=== PATIENT | male | born 1950 | race Hispanic/Latino ===

== ENCOUNTER → 2018-01-07 | Outpatient (CLI) | payer OTHER ==
[~2018-01-07] MED LIST: AEC81 PO; ATOR40TA69 PO; CLOP75TA14 NG; CYAN500 PO; FURO20TA4 PO; GABA-531 PO; GLIP2.5T2 PO; HYDR-4030 PO; LISI2.5T2 PO; MAGN400T6 PO; MAGN500C15 PO; METF-446 PO; METO25TA6 PO; PANT20TA PO
== END | disposition home or self-care (01) ==
LOC: SHCH 15:57
PROVIDERS: ATTEND Internal Medicine Cardiovascular Disease
DX: I47.2 Ventricular tachycardia (principal); I25.10 Atherosclerotic heart disease of native coronary artery without angina pectoris; Z95.0 Presence of cardiac pacemaker
CPT/HCPCS: 93306

== ENCOUNTER → 2018-01-09 | Outpatient (CLI) | payer OTHER | END | disposition home or self-care (01) | LOC: SHCH 14:35 | PROVIDERS: ATTEND Internal Medicine Cardiovascular Disease | DX: I73.9 Peripheral vascular disease, unspecified (principal); E11.42 Type 2 diabetes mellitus with diabetic polyneuropathy; I25.10 Atherosclerotic heart disease of native coronary artery without angina pectoris | CPT/HCPCS: 93925 ==

== ENCOUNTER 2018-01-20 08:54 | Observation (INO) | payer OTHER ==
[~2018-01-20] VITALS: Ht 180.3 cm; Wt 87.4 kg
[~2018-01-20 08:54] MED LIST changes: -CYAN500 PO; -GABA-531 PO; -LISI2.5T2 PO; -MAGN400T6 PO
[2018-01-20] MEDS ORDERED: SODIUM CHLORIDE 0.9% 500ML 500 ML IV ONE (10:29)
[2018-01-20 10:32] LABS: POTASSIUM 4.4 mmol/L (3.5-5.1)
[2018-01-20 10:35] LABS: BASOPHILS % (AUTO) 1.2 % (0.0-5.0); EOSINOPHILS % (AUTO) 2.9 % (0.0-8.0); HEMATOCRIT 46.1 % (42-54); LYMPHOCYTES % (AUTO) 18.9 % (21.0-51.0); MEAN CORPUSCULAR HEMOGLOBIN 31.9 pg (27.0-33.0); MEAN CORPUSCULAR HGB CONC 34.4 g/dL (32.0-36.0); MEAN CORPUSCULAR VOLUME 92.5 fL (79-99); MONOCYTES % (AUTO) 6.5 % (3.0-13.0); NEUTROPHILS % (AUTO) 70.5 % (40.0-77.0); NUCLEATED RED BLOOD CELLS 0.1 % (0.0-0.19); PLATELET COUNT (AUTO) 190 K/uL (130-400); RED BLOOD CELL COUNT(AUTO) 4.98 MIL/uL (4.50-6.20); RED CELL DISTRIBUTION WIDTH 13.5 % (11.0-15.5); WHITE BLOOD COUNT (AUTO) 9.3 K/uL (4.8-10.8)
[2018-01-20 10:38] LABS: BILIRUBIN,TOTAL 1.2 mg/dL (0.2-1.0); TOTAL PROTEIN, SERUM 7.6 g/dL (6.0-8.3)
[2018-01-20] MEDS ORDERED: ACETAMINOPHEN 325 MG TAB ONE (11:58)
[2018-01-20 12:17] LABS: INR 0.93 (0.85-1.15); PARTIAL THROMBOPLASTIN TIME 31.3 SEC (26.3-35.5); PROTHROMBIN TIME 9.8 SEC (9.6-11.6)
[2018-01-20] MEDS ORDERED: MECLIZINE HCL 25 MG TABLET PO PRN (15:00)
[2018-01-20 15:31] LABS: APPEARANCE,URINE Cloudy (CLEAR); BILIRUBIN,URINE Negative (NEGATIVE); COLOR,URINE Yellow (YELLOW); GLUCOSE, URINE (UA) Negative (NEGATIVE); KETONES,URINE Trace mg/dL (NEGATIVE); LEUKOCYTE ESTERASE ,URINE Negative (NEGATIVE); NITRATE,URINE Negative (NEGATIVE); OCCULT BLOOD,URINE Negative (NEGATIVE); PH,URINE >=9.0 (5.0-8.0); PROTEIN,URINE POS 2+ (NEGATIVE)
[2018-01-20 16:21] LABS: BACTERIA,URINE Few /HPF (None Seen); RBC,URINE 0-1 /HPF (0-1); WBC,URINE 0-1 /HPF (0-1)
[2018-01-20 16:23] LABS: AMORPHOUS SEDIMENT,UR Few /LPF (None Seen); SQUAMOUS EPITHELIAL CELL,UR Rare /HPF (0-2)
[2018-01-20 16:24] LABS: MUCUS,URINE Rare LPF (None Seen)
[2018-01-20] MEDS: INSULIN HUMULIN R 100 UNIT/ML 3ML SQ SCH ×2 (16:30→21:00)
[2018-01-20 17:52] VITALS: BP 141/90
[2018-01-20] MEDS ORDERED: MAGNESIUM 2GM PREMIX 50ML 50 ML IV SCH (18:00)
[2018-01-20] MEDS: SODIUM CHLORIDE 0.9% 1000ML 1,000 ML IV SCH (18:08)
[2018-01-20 19:40] VITALS: BP 139/76
[2018-01-20] MEDS: MAGNESIUM OXIDE 400 MG TABLET PO SCH (20:38)
[2018-01-20] MEDS: ATORVASTATIN CALCIUM 40 MG TABLET PO SCH (20:38)
[2018-01-20] MEDS: METOPROLOL TARTRATE 25 MG TAB PO SCH (20:38)
[2018-01-20] MEDS: HYDROXYZINE PAMOATE 25 MG PO SCH (21:00)
[2018-01-21] VITALS (7 sets, daily range): BP systolic 122–153; BP diastolic 55–79
[2018-01-21] MEDS: INSULIN HUMULIN R 100 UNIT/ML 3ML SQ SCH ×4 (06:30→22:08)
[2018-01-21 08:43] LABS: TROPONIN I 0.27 ng/mL (0.00-0.06)
[2018-01-21] MEDS: MAGNESIUM OXIDE 400 MG TABLET PO SCH ×3 (08:59→20:39)
[2018-01-21] MEDS: ASPIRIN 81 MG EC TAB PO SCH (08:59)
[2018-01-21] MEDS: CLOPIDOGREL BISULFATE 75 MG TAB NG SCH (08:59)
[2018-01-21] MEDS: FUROSEMIDE 20 MG TABLET PO SCH (08:59)
[2018-01-21] MEDS: PANTOPRAZOLE SODIUM 40 MG TABLET.DR PO SCH (08:59)
[2018-01-21] MEDS ORDERED: PANTOPRAZOLE SODIUM 40 MG TABLET.DR PO SCH (09:00)
[2018-01-21] MEDS: HYDROXYZINE PAMOATE 25 MG PO SCH ×2 (09:01→21:00)
[2018-01-21] MEDS: ENOXAPARIN SODIUM 30 MG/0.3 ML SQ SCH (09:02)
[2018-01-21] MEDS ORDERED: ACETAMINOPHEN 325 MG TAB PO PRN (12:00)
[2018-01-21] MEDS: SODIUM CHLORIDE 0.9% 1000ML 1,000 ML IV SCH ×2 (15:17→17:03)
[2018-01-21] MEDS: ATORVASTATIN CALCIUM 40 MG TABLET PO SCH (20:39)
[2018-01-21] MEDS: METOPROLOL TARTRATE 25 MG TAB PO SCH (20:40)
[2018-01-22 03:53] VITALS: BP 132/73
[2018-01-22] MEDS: INSULIN HUMULIN R 100 UNIT/ML 3ML SQ SCH ×3 (06:21→16:30)
[2018-01-22 07:00] VITALS: BP 116/65
[2018-01-22] MEDS: HYDROXYZINE PAMOATE 25 MG PO SCH (09:00)
[2018-01-22] MEDS: MAGNESIUM OXIDE 400 MG TABLET PO SCH ×2 (09:23→14:00)
[2018-01-22] MEDS: ASPIRIN 81 MG EC TAB PO SCH (09:23)
[2018-01-22] MEDS: CLOPIDOGREL BISULFATE 75 MG TAB NG SCH (09:23)
[2018-01-22] MEDS: FUROSEMIDE 20 MG TABLET PO SCH (09:23)
[2018-01-22] MEDS: PANTOPRAZOLE SODIUM 40 MG TABLET.DR PO SCH (09:23)
[2018-01-22] MEDS: ENOXAPARIN SODIUM 30 MG/0.3 ML SQ SCH (09:24)
[2018-01-22] MEDS: SODIUM CHLORIDE 0.9% 1000ML 1,000 ML IV SCH (09:25)
[2018-01-22] MEDS ORDERED: MECLIZINE HCL 25 MG TABLET PO PRN (10:45)
[2018-01-22 11:29] VITALS: BP 126/65
[2018-01-22] MEDS ORDERED: IOHEXOL-350 50ML VIAL IV ONE (14:10)
[2018-01-22 16:08] VITALS: BP 135/89
[2018-01-22] MEDS ORDERED: MECL-111 PO (16:52)
== END 2018-01-22 17:30 | disposition home or self-care (01) ==
LOC: EDH 08:54 → EDHIP 14:22 → INTOOBSV 14:22 → 2DH 17:04
PROVIDERS: ADMIT Hospitalist; ATTEND Hospitalist
DX: R55 Syncope and collapse (principal); E78.5 Hyperlipidemia, unspecified; I10 Essential (primary) hypertension; E11.9 Type 2 diabetes mellitus without complications; E83.42 Hypomagnesemia; H91.90 Unspecified hearing loss, unspecified ear; H93.19 Tinnitus, unspecified ear; I25.10 Atherosclerotic heart disease of native coronary artery without angina pectoris; I25.5 Ischemic cardiomyopathy; I49.01 Ventricular fibrillation; Z91.19 Patient's noncompliance with other medical treatment and regimen; Z95.1 Presence of aortocoronary bypass graft; Z95.810 Presence of automatic (implantable) cardiac defibrillator; Z82.0 Family history of epilepsy and other diseases of the nervous system; Z82.3 Family history of stroke; Z82.49 Family history of ischemic heart disease and other diseases of the circulatory system; Z83.3 Family history of diabetes mellitus; Z88.5 Allergy status to narcotic agent
CPT/HCPCS: 36415 ×2; 70450; 70470; 71045; 80053; 81001; 82550; 82948 ×9; 83735; 83874; 84484 ×2; 85025; 85610; 85730; 93005; 93880; 96361 ×3; 96365; 96372 ×2; 97116; 97161; 99285; G0378 ×51; G8978; G8979; G8980; G8981; G8982; G8983; J1650 ×2; J1815; J3475; J7030 ×2; J7040; Q9967

== ENCOUNTER 2018-03-09 23:37 | Observation (INO) | payer OTHER ==
[~2018-03-09] VITALS: Ht 180.3 cm; Wt 86.5 kg
[~2018-03-09 23:37] MED LIST changes: -HYDR-4030 PO; +MECL-111 PO
[2018-03-09] MEDS ORDERED: ASPIRIN 81MG TAB.CHEW ONE (23:47)
[2018-03-09] MEDS ORDERED: NITROGLYCERIN 0.4 MG SL TAB SL ONE (23:47)
[2018-03-09] MEDS ORDERED: ONDANSETRON HCL 4 MG/2 ML VIAL ONE (23:59)
[2018-03-10] MEDS ORDERED: ONDANSETRON ODT 4 MG TAB ONE (00:01)
[2018-03-10 00:14] LABS: BASOPHILS % (AUTO) 3.1 % (0.0-5.0); EOSINOPHILS % (AUTO) 4.7 % (0.0-8.0); HEMATOCRIT 42.8 % (42-54); LYMPHOCYTES % (AUTO) 35.9 % (21.0-51.0); MEAN CORPUSCULAR HEMOGLOBIN 31.7 pg (27.0-33.0); MEAN CORPUSCULAR HGB CONC 34.3 g/dL (32.0-36.0); MEAN CORPUSCULAR VOLUME 92.4 fL (79-99); MONOCYTES % (AUTO) 6.3 % (3.0-13.0); NUCLEATED RED BLOOD CELLS 0.1 % (0.0-0.19); PLATELET COUNT (AUTO) 154 K/uL (130-400); RED BLOOD CELL COUNT(AUTO) 4.63 MIL/uL (4.50-6.20); RED CELL DISTRIBUTION WIDTH 13.3 % (11.0-15.5)
[2018-03-10 00:19] LABS: POTASSIUM 3.8 mmol/L (3.5-5.1)
[2018-03-10 00:21] LABS: INR 0.94 (0.85-1.15); PARTIAL THROMBOPLASTIN TIME 29.3 SEC (26.3-35.5); PROTHROMBIN TIME 9.9 SEC (9.6-11.6)
[2018-03-10 00:30] LABS: ALBUMIN 3.8 g/dL (3.5-5.0); BILIRUBIN,TOTAL 0.6 mg/dL (0.2-1.0); TOTAL PROTEIN, SERUM 7.2 g/dL (6.0-8.3)
[2018-03-10] MEDS ORDERED: ACETAMINOPHEN 325 MG TAB PO PRN (02:45)
[2018-03-10] MEDS: NITROGLYCERIN 1GM/1 INCH PACKET TD SCH ×2 (02:45→07:28)
[2018-03-10] MEDS ORDERED: MORPHINE SULFATE 2 MG/ML 1ML SYG IV PRN (02:45)
[2018-03-10] MEDS ORDERED: ONDANSETRON HCL MDV 20ML 2 MG/ML VIAL IV PRN (02:45)
[2018-03-10] MEDS ORDERED: MECLIZINE HCL 25 MG TABLET PO PRN (03:00)
[2018-03-10] MEDS ORDERED: GLUCAGON 1MG KIT 1 MG ML IM PRN (03:15)
[2018-03-10] MEDS ORDERED: DEXTROSE 50%-WATER 50 ML DISP.SYRIN IV PRN (03:15)
[2018-03-10 03:51] LABS: ALBUMIN 3.7 g/dL (3.5-5.0); BILIRUBIN,TOTAL 0.7 mg/dL (0.2-1.0); CREATININE 1.1 mg/dL (0.5-1.5); POTASSIUM 4.6 mmol/L (3.5-5.1); TOTAL PROTEIN, SERUM 6.9 g/dL (6.0-8.3)
[2018-03-10 04:00] VITALS: BP 132/69
[2018-03-10] MEDS: INSULIN HUMULIN R 100 UNIT/ML 3ML SQ SCH ×2 (06:09→11:21)
[2018-03-10 07:37] VITALS: BP 128/70
[2018-03-10] MEDS ORDERED: MAGNESIUM OXIDE 400 MG TABLET PO ONE (07:40)
[2018-03-10] MEDS ORDERED: ATORVASTATIN CALCIUM 20 MG TABLET PO SCH (09:00)
[2018-03-10] MEDS ORDERED: MAGNESIUM OXIDE 400 MG TABLET PO SCH (09:00)
[2018-03-10] MEDS ORDERED: FAMOTIDINE/PF 20 MG/2 ML VIAL IV SCH (09:00)
[2018-03-10] MEDS ORDERED: FUROSEMIDE 20 MG TABLET PO SCH (09:00)
[2018-03-10] MEDS ORDERED: ASPIRIN 81 MG EC TAB PO SCH (09:00)
[2018-03-10] MEDS ORDERED: METOPROLOL TARTRATE 25 MG TAB PO SCH (09:00)
[2018-03-10 11:11] VITALS: BP 134/69
[2018-03-10] MEDS ORDERED: METOPROLOL SUCC PO (12:06)
[2018-03-10] MEDS ORDERED: SERT50TA12 PO (12:06)
[2018-03-10] MEDS ORDERED: HYDR-3421 PO (12:06)
[2018-03-11] MEDS ORDERED: ISOSORBIDE MONO 30MG TAB SR PO SCH (09:00)
== END 2018-03-10 13:36 | disposition home or self-care (01) ==
LOC: EDH 23:37 → EDHIP 03-10 02:00 → INTOOBSV 03-10 02:00 → OBSVTOIN 03-10 02:00 → 2DH 03-10 02:43
PROVIDERS: ADMIT Hospitalist; ATTEND Hospitalist
DX: I24.9 Acute ischemic heart disease, unspecified (principal); E11.9 Type 2 diabetes mellitus without complications; E78.2 Mixed hyperlipidemia; E83.42 Hypomagnesemia; I11.0 Hypertensive heart disease with heart failure; I50.42 Chronic combined systolic (congestive) and diastolic (congestive) heart failure; I25.10 Atherosclerotic heart disease of native coronary artery without angina pectoris; I25.2 Old myocardial infarction; I25.5 Ischemic cardiomyopathy; I49.01 Ventricular fibrillation; I49.3 Ventricular premature depolarization; K21.9 Gastro-esophageal reflux disease without esophagitis; Z86.74 Personal history of sudden cardiac arrest; Z87.891 Personal history of nicotine dependence; Z91.14 Patient's other noncompliance with medication regimen; Z95.1 Presence of aortocoronary bypass graft; Z95.810 Presence of automatic (implantable) cardiac defibrillator; Z82.0 Family history of epilepsy and other diseases of the nervous system; Z82.3 Family history of stroke; Z82.49 Family history of ischemic heart disease and other diseases of the circulatory system; Z83.3 Family history of diabetes mellitus; Z88.5 Allergy status to narcotic agent
CPT/HCPCS: 36415 ×2; 71045; 80053 ×2; 82550; 82948 ×2; 83735; 83874; 84484 ×2; 85025; 85610; 85730; 93005 ×2; 94760; 96374; 99291; A4606; G0378 ×12; J2405; J3490

== ENCOUNTER → 2018-12-15 | Outpatient (CLI) | payer OTHER ==
[~2018-12-15] VITALS: Ht 180.3 cm; Wt 82.6 kg
[~2018-12-15] MED LIST changes: +HYDR-3421 PO; -METO25TA6 PO; +METOPROLOL SUCC PO; +REGADENOSON 0.4 MG/5 ML PF SYG IVP SCH; +SERT50TA12 PO
== END | disposition home or self-care (01) ==
LOC: SHCH 07:59
PROVIDERS: ATTEND Internal Medicine Cardiovascular Disease
DX: I51.7 Cardiomegaly (principal); R06.00 Dyspnea, unspecified; R53.83 Other fatigue
CPT/HCPCS: 78452; 93017; 96374; A9500 ×2; J2785

== ENCOUNTER → 2020-02-18 | Outpatient (CLI) | payer OTHER ==
[~2020-02-18] MED LIST changes: -MECL-111 PO; +MECL-160 PO; -REGADENOSON 0.4 MG/5 ML PF SYG IVP SCH
== END | disposition home or self-care (01) ==
LOC: SHCH 13:02
PROVIDERS: ATTEND Internal Medicine Cardiovascular Disease
DX: R01.1 Cardiac murmur, unspecified (principal); R09.89 Other specified symptoms and signs involving the circulatory and respiratory systems
CPT/HCPCS: 93306; 93975

== ENCOUNTER → 2020-09-01 | Outpatient (CLI) | payer OTHER ==
[~2020-09-01] MED LIST changes: +SERT-439 PO; -SERT50TA12 PO
== END | disposition home or self-care (01) ==
LOC: SHCH 10:57
PROVIDERS: ATTEND Internal Medicine Cardiovascular Disease
DX: I70.293 Other atherosclerosis of native arteries of extremities, bilateral legs (principal)
CPT/HCPCS: 93925

== ENCOUNTER 2021-06-06 00:38 | Emergency (ER) | payer OTHER ==
[~2021-06-06] VITALS: Ht 180.3 cm; Wt 88.9 kg
[~2021-06-06 00:38] MED LIST changes: -ATOR40TA69 PO; +ATOR40TA71 PO; -CLOP75TA14 NG; +CLOP75TA14 PO; -FURO20TA4 PO; +FURO40TA5 PO; +GLIP-162 PO; -GLIP2.5T2 PO; -HYDR-3421 PO; +ISOS30TA92 PO; +LORA10TA7 PO; -MECL-160 PO; +METO-408 PO; -METOPROLOL SUCC PO; -PANT20TA PO; -SERT-439 PO; +SERT-440 PO; +SPIR25TA6 PO
[2021-06-06 01:30] LABS: EOSINOPHILS % (AUTO) 3.5 % (0.0-8.0); HEMATOCRIT 39.6 % (42-54); LYMPHOCYTES % (AUTO) 18.8 % (21.0-51.0); MEAN CORPUSCULAR HEMOGLOBIN 29.3 pg (27.0-33.0); MEAN CORPUSCULAR HGB CONC 33.3 g/dL (32.0-36.0); MONOCYTES % (AUTO) 7.3 % (3.0-13.0); NEUTROPHILS % (AUTO) 69.1 % (40.0-77.0); PLATELET COUNT (AUTO) 183 K/uL (130-400); RED CELL DISTRIBUTION WIDTH 13.6 % (11.0-15.5); WHITE BLOOD COUNT (AUTO) 11.8 K/uL (4.8-10.8)
[2021-06-06 01:35] LABS: CREATININE 1.2 mg/dL (0.5-1.5); POTASSIUM 4.4 mmol/L (3.5-5.1)
[2021-06-06 01:36] LABS: INR 0.94 (0.85-1.15); PROTHROMBIN TIME 10.3 SEC (9.6-11.6)
[2021-06-06 01:37] LABS: PARTIAL THROMBOPLASTIN TIME 27.8 SEC (26.3-35.5)
[2021-06-06 01:39] LABS: ALBUMIN 4.1 g/dL (3.5-5.0); BILIRUBIN,TOTAL 0.5 mg/dL (0.2-1.0); TOTAL PROTEIN, SERUM 6.8 g/dL (6.0-8.3)
[2021-06-06 01:50] LABS: B-TYPE NATRIURETIC PEPTIDE 556 pg/mL (0-100)
[2021-06-06 02:42] VITALS: BP 125/62
== END 2021-06-06 02:58 | disposition home or self-care (01) ==
LOC: EDH 00:38
DX: I11.0 Hypertensive heart disease with heart failure (principal); I50.9 Heart failure, unspecified; R07.89 Other chest pain; E11.9 Type 2 diabetes mellitus without complications; E78.00 Pure hypercholesterolemia, unspecified; Z79.82 Long term (current) use of aspirin; Z79.84 Long term (current) use of oral hypoglycemic drugs; Z79.899 Other long term (current) drug therapy; Z95.1 Presence of aortocoronary bypass graft; Z95.810 Presence of automatic (implantable) cardiac defibrillator
CPT/HCPCS: 36415; 71045; 80053; 82550; 83735; 83880; 84484; 85025; 85610; 85730; 93005

== ENCOUNTER 2022-02-08 22:07 | Emergency (ER) | payer OTHER ==
[~2022-02-08] VITALS: Ht 177.8 cm; Wt 83.5 kg
[~2022-02-08 22:07] MED LIST changes: -MAGN500C15 PO; +MAGN500C4 PO
[2022-02-08 22:25] LABS: BASOPHILS % (AUTO) 1.1 % (0.0-5.0); EOSINOPHILS % (AUTO) 3.2 % (0.0-8.0); HEMATOCRIT 40.4 % (42-54); LYMPHOCYTES % (AUTO) 19.2 % (21.0-51.0); MEAN CORPUSCULAR HEMOGLOBIN 31.2 pg (27.0-33.0); MEAN CORPUSCULAR HGB CONC 34.7 g/dL (32.0-36.0); MONOCYTES % (AUTO) 7.8 % (3.0-13.0); NEUTROPHILS % (AUTO) 68.3 % (40.0-77.0); PLATELET COUNT (AUTO) 182 K/uL (130-400); RED BLOOD CELL COUNT(AUTO) 4.49 MIL/uL (4.50-6.20); RED CELL DISTRIBUTION WIDTH 13.4 % (11.0-15.5); WHITE BLOOD COUNT (AUTO) 10.7 K/uL (4.8-10.8)
[2022-02-08 22:38] LABS: INR 0.96 (0.85-1.15); PROTHROMBIN TIME 10.5 SEC (9.6-11.6)
[2022-02-08 22:40] LABS: PARTIAL THROMBOPLASTIN TIME 29.1 SEC (26.3-35.5)
[2022-02-08 22:45] LABS: ALBUMIN 4.1 g/dL (3.5-5.0); CREATININE 1.4 mg/dL (0.5-1.5); POTASSIUM 4.2 mmol/L (3.5-5.1)
[2022-02-08 23:20] VITALS: BP 127/65
[2022-02-08] MEDS ORDERED: 0.9% NACL 500ML IV.SOLN 500 ML IV ONE (23:30)
[2022-02-08] MEDS ORDERED: ASPIRIN 81MG CHEW TAB PO ONE (23:30)
== END 2022-02-09 00:31 | disposition home or self-care (01) ==
LOC: EDH 22:07
DX: R55 Syncope and collapse (principal); R42 Dizziness and giddiness; E11.9 Type 2 diabetes mellitus without complications; E78.00 Pure hypercholesterolemia, unspecified; I10 Essential (primary) hypertension; I25.2 Old myocardial infarction; Z79.82 Long term (current) use of aspirin; Z79.84 Long term (current) use of oral hypoglycemic drugs; Z95.1 Presence of aortocoronary bypass graft
CPT/HCPCS: 99285; 70450; 71045; 84484; 80053; 85025; 85610; 85730; 36415; 93005; J7040

== ENCOUNTER → 2022-06-15 | Outpatient (CLI) | payer OTHER ==
[~2022-06-15] MED LIST changes: +CLOP-31 PO; -CLOP75TA14 PO
== END | disposition home or self-care (01) ==
LOC: RAH 14:55
PROVIDERS: ATTEND Internal Medicine
DX: I70.293 Other atherosclerosis of native arteries of extremities, bilateral legs (principal)
CPT/HCPCS: 93925

== ENCOUNTER 2022-09-22 13:03 | Emergency (ER) | payer OTHER ==
[~2022-09-22] VITALS: Ht 180.3 cm; Wt 86.2 kg
[2022-09-22] MEDS ORDERED: 0.9%NACL 1000ML 1,000 ML IV ONE (14:00)
[2022-09-22 14:32] LABS: HEMATOCRIT 42.7 % (42-54); LYMPHOCYTES % (AUTO) 11.4 % (21.0-51.0); MEAN CORPUSCULAR HEMOGLOBIN 30.6 pg (27.0-33.0); MEAN CORPUSCULAR HGB CONC 33.5 g/dL (32.0-36.0); MEAN CORPUSCULAR VOLUME 91.4 fL (79-99); MONOCYTES % (AUTO) 5.3 % (3.0-13.0); NEUTROPHILS % (AUTO) 79.9 % (40.0-77.0); PLATELET COUNT (AUTO) 165 K/uL (130-400); RED BLOOD CELL COUNT(AUTO) 4.67 MIL/uL (4.50-6.20); RED CELL DISTRIBUTION WIDTH 13.4 % (11.0-15.5); WHITE BLOOD COUNT (AUTO) 9.5 K/uL (4.8-10.8)
[2022-09-22 14:52] LABS: ALBUMIN 3.9 g/dL (3.5-5.0); CREATININE 1.3 mg/dL (0.5-1.5); TOTAL PROTEIN, SERUM 7.2 g/dL (6.0-8.3)
[2022-09-22 15:37] VITALS: BP 129/78
== END 2022-09-22 15:38 | disposition home or self-care (01) ==
LOC: EDH 13:03
DX: I95.1 Orthostatic hypotension (principal); I10 Essential (primary) hypertension; E11.9 Type 2 diabetes mellitus without complications; E78.00 Pure hypercholesterolemia, unspecified; K80.20 Calculus of gallbladder without cholecystitis without obstruction; N20.0 Calculus of kidney; Z79.82 Long term (current) use of aspirin; Z79.84 Long term (current) use of oral hypoglycemic drugs; Z79.899 Other long term (current) drug therapy; Z95.0 Presence of cardiac pacemaker; Z95.1 Presence of aortocoronary bypass graft; Z98.890 Other specified postprocedural states
CPT/HCPCS: 36415; 70450; 74176; 80053; 85025; 93005

== ENCOUNTER 2022-10-29 08:32 | Emergency (ER) | payer OTHER ==
[~2022-10-29] VITALS: Ht 180.3 cm; Wt 84.4 kg
[2022-10-29 09:19] LABS: BASOPHILS % (AUTO) 0.9 % (0.0-5.0); EOSINOPHILS % (AUTO) 2.3 % (0.0-8.0); HEMATOCRIT 41.7 % (42-54); LYMPHOCYTES % (AUTO) 13.3 % (21.0-51.0); MEAN CORPUSCULAR HEMOGLOBIN 30.9 pg (27.0-33.0); MEAN CORPUSCULAR HGB CONC 33.6 g/dL (32.0-36.0); MEAN CORPUSCULAR VOLUME 92.1 fL (79-99); MONOCYTES % (AUTO) 5.6 % (3.0-13.0); NEUTROPHILS % (AUTO) 77.4 % (40.0-77.0); PLATELET COUNT (AUTO) 192 K/uL (130-400); RED BLOOD CELL COUNT(AUTO) 4.53 MIL/uL (4.50-6.20); RED CELL DISTRIBUTION WIDTH 13.7 % (11.0-15.5); WHITE BLOOD COUNT (AUTO) 12.6 K/uL (4.8-10.8)
[2022-10-29 09:33] LABS: CREATININE 1.1 mg/dL (0.5-1.5); POTASSIUM 4.9 mmol/L (3.5-5.1)
[2022-10-29 09:36] LABS: TOTAL PROTEIN, SERUM 7.4 g/dL (6.0-8.3)
[2022-10-29 11:51] VITALS: BP 136/79
== END 2022-10-29 12:11 | disposition home or self-care (01) ==
LOC: EDH 08:32
DX: R79.89 Other specified abnormal findings of blood chemistry (principal); F32.A Depression, unspecified; E11.9 Type 2 diabetes mellitus without complications; E78.00 Pure hypercholesterolemia, unspecified; I10 Essential (primary) hypertension; Z79.82 Long term (current) use of aspirin; Z79.84 Long term (current) use of oral hypoglycemic drugs; Z79.899 Other long term (current) drug therapy; Z95.1 Presence of aortocoronary bypass graft; Z95.810 Presence of automatic (implantable) cardiac defibrillator
CPT/HCPCS: 36415; 71045; 80053; 83880; 84484; 85025; 93005

== ENCOUNTER → 2023-03-01 | Outpatient (CLI) | payer OTHER ==
[~2023-03-01] MED LIST changes: +REGADENOSON 0.4 MG/5 ML PF SYG IVP ONE
== END | disposition home or self-care (01) ==
LOC: SHCH 08:37
PROVIDERS: ATTEND Internal Medicine Cardiovascular Disease
DX: I49.3 Ventricular premature depolarization (principal); I25.10 Atherosclerotic heart disease of native coronary artery without angina pectoris; I51.7 Cardiomegaly; Z95.0 Presence of cardiac pacemaker
CPT/HCPCS: 78452; 96374; 93017; J2785; A9500 ×2

== ENCOUNTER 2023-04-15 05:49 | Day surgery (SDC) | payer OTHER ==
[2023-04-11 09:28] LABS: BASOPHILS # (AUTO) 0.13 K/uL (0.00-0.20); BASOPHILS % (AUTO) 1.1 % (0.0-5.0); EOSINOPHILS # (AUTO) 0.35 K/uL (0.00-0.70); EOSINOPHILS % (AUTO) 2.9 % (0.0-8.0); HEMATOCRIT 40.9 % (42-54); IMMATURE GRANULOCYTE ABSOLUTE 0.05 K/uL (0-1); LYMPHOCYTES # (AUTO) 1.9 K/uL (1.0-4.8); LYMPHOCYTES % (AUTO) 15.6 % (21.0-51.0); MEAN CORPUSCULAR HGB CONC 33.5 g/dL (32.0-36.0); MEAN CORPUSCULAR VOLUME 89.7 fL (79-99); MONOCYTES # (AUTO) 0.7 K/uL (0.1-1.0); MONOCYTES % (AUTO) 5.8 % (3.0-13.0); NEUTROPHILS # (AUTO) 8.9 K/uL (1.8-7.7); NEUTROPHILS % (AUTO) 74.2 % (40.0-77.0); PLATELET COUNT (AUTO) 203 K/uL (130-400); RED BLOOD CELL COUNT(AUTO) 4.56 MIL/uL (4.50-6.20); RED CELL DISTRIBUTION WIDTH 13.5 % (11.0-15.5)
[2023-04-11 09:29] LABS: APPEARANCE,URINE CLEAR (CLEAR); BILIRUBIN,URINE NEGATIVE (NEGATIVE); COLOR,URINE LIGHT-YELLOW (YELLOW); GLUCOSE, URINE (UA) NEGATIVE (NEGATIVE); KETONES,URINE NEGATIVE (NEGATIVE); LEUKOCYTE ESTERASE ,URINE NEGATIVE Leu/uL (NEGATIVE); NITRATE,URINE NEGATIVE (NEGATIVE); OCCULT BLOOD,URINE NEGATIVE (NEGATIVE); PROTEIN,URINE NEGATIVE (NEGATIVE); UROBILINOGEN,URINE 0.2 mg/dL (0.2-1.0)
[2023-04-11 09:32] LABS: ADD UA MICROSCOPIC NO
[2023-04-11 09:33] LABS: CREATININE 1.3 mg/dL (0.5-1.5); POTASSIUM 4.9 mmol/L (3.5-5.1)
[2023-04-11 09:37] LABS: INR < 0.93 (0.85-1.15); PROTHROMBIN TIME 10.6 SEC (9.6-11.6)
[2023-04-11 09:38] LABS: PARTIAL THROMBOPLASTIN TIME 30.1 SEC (26.3-35.5)
[2023-04-11 09:46] VITALS: BP 125/70; PULSE 67; RESP 20
[2023-04-11 10:03] LABS: B-TYPE NATRIURETIC PEPTIDE 1460 pg/mL (0-100)
[2023-04-15] VITALS (12 sets, daily range): BP systolic 109–117; BP diastolic 64–77; PULSE 66–75; RESP 14–16
[~2023-04-15] VITALS: Ht 177.8 cm; Wt 80.9 kg
[~2023-04-15 05:49] MED LIST changes: +CHOL500050 PO; +FAMO40TA7 PO; +FURO20TA4 PO; -FURO40TA5 PO; -ISOS30TA92 PO; -LORA10TA7 PO; +MAGN250C PO; -MAGN500C4 PO; -REGADENOSON 0.4 MG/5 ML PF SYG IVP ONE; -SPIR25TA6 PO; +vitamin b 12 PO
[2023-04-15] MEDS ORDERED: 0.9%NACL 1000ML 1,000 ML IV ONE (06:13)
[2023-04-15] MEDS ORDERED: MEPERIDINE-PF 25 MG/ML SYG ONE ×3 (07:05→08:17)
[2023-04-15] MEDS ORDERED: MIDAZOLAM HCL 1 MG/ML 2ML VIAL ONE ×3 (07:05→08:17)
[2023-04-15] MEDS ORDERED: LIDOCAINE HCL 400MG/20ML VIAL ONE (07:05)
[2023-04-15] MEDS ORDERED: IOHEXOL-350 50ML VIAL IV ONE (07:05)
[2023-04-15] MEDS ORDERED: SODIUM BICARB 50MEQ 50ML VIAL 50 ML ONE (07:05)
[2023-04-15] MEDS ORDERED: NITROGLYCERIN 50MG VIAL ONE (07:05)
[2023-04-15] MEDS ORDERED: HEPARIN 10,000 UNIT/10ML (1,000 UNIT/ML) VIAL ONE (07:05)
[2023-04-15] MEDS ORDERED: IOHEXOL 350 MG/ML 100ML INFUS..BTL IV ONE (07:05)
[2023-04-15] MEDS ORDERED: MAGNESIUM 2GM PREMIX 50ML 50 ML IV ONE (07:56)
[2023-04-15] MEDS ORDERED: IOHEXOL-350 75 ML VIAL IV ONE (08:07)
[2023-04-15] MEDS ORDERED: GLUCAGON 1MG KIT 1 MG ML IM PRN (10:00)
[2023-04-15] MEDS ORDERED: DEXTROSE 50%-WATER 50 ML DISP.SYRIN IV PRN (10:00)
[2023-04-15] MEDS ORDERED: ACETAMINOPHEN WITH CODEINE 1 TAB TAB PO PRN (10:00)
[2023-04-15] MEDS ORDERED: 0.9%NACL 1000ML 1,000 ML IV SCH (10:00)
[2023-04-15] MEDS ORDERED: ONDANSETRON 4MG INJ IVP SCH (10:00)
[2023-04-15] MEDS ORDERED: MORPHINE 5 MG/ML VIAL (5MG OR GREATER DOSE) IVP SCH ×2 (10:30)
[2023-04-15] MEDS ORDERED: INSULIN HUMULIN R 100 UNIT/ML 3ML SQ SCH (11:30)
[2023-04-15] MEDS: ACETAMINOPHEN WITH CODEINE 1 TAB TAB PO PRN ×2 (13:39→14:24)
== END 2023-04-15 16:10 | disposition home or self-care (01) ==
LOC: DAH 05:49
PROVIDERS: ATTEND Internal Medicine Cardiovascular Disease
DX: I25.10 Atherosclerotic heart disease of native coronary artery without angina pectoris (principal); I25.810 Atherosclerosis of coronary artery bypass graft(s) without angina pectoris; T82.855A Stenosis of coronary artery stent, initial encounter; I11.0 Hypertensive heart disease with heart failure; I50.42 Chronic combined systolic (congestive) and diastolic (congestive) heart failure; I25.5 Ischemic cardiomyopathy; E11.51 Type 2 diabetes mellitus with diabetic peripheral angiopathy without gangrene; I25.2 Old myocardial infarction; E78.5 Hyperlipidemia, unspecified; Z79.899 Other long term (current) drug therapy; Z79.01 Long term (current) use of anticoagulants; Z98.890 Other specified postprocedural states; Z79.82 Long term (current) use of aspirin; Z79.84 Long term (current) use of oral hypoglycemic drugs; Z88.6 Allergy status to analgesic agent; Z95.5 Presence of coronary angioplasty implant and graft; Z83.3 Family history of diabetes mellitus; Y83.8 Other surgical procedures as the cause of abnormal reaction of the patient, or of later complication, without mention of misadventure at the time of the procedure
CPT/HCPCS: 80048; 83880; 85025; 85610; 85730; 81003; 36415 ×2; 71045; 93005; 93459; 83735; 85347 ×2; 82948 ×2; C9600; C1769 ×5; C1887 ×7; C1894; C1725 ×3; C1874; C1760; J3475; J3490 ×3; J7030; J1644 ×3; J2250 ×3; J2175 ×3; Q9967 ×3; A4215; A4222; A4221; A4663; A4216; A4606; Q9965; A4223 ×3; 99156; 99157

== ENCOUNTER 2023-05-13 03:27 | Emergency (ER) | payer OTHER ==
[~2023-05-13] VITALS: Ht 180.3 cm; Wt 82.1 kg
[2023-05-13 04:03] LABS: BASOPHILS # (AUTO) 0.14 K/uL (0.00-0.20); BASOPHILS % (AUTO) 1.3 % (0.0-5.0); EOSINOPHILS # (AUTO) 0.26 K/uL (0.00-0.70); EOSINOPHILS % (AUTO) 2.4 % (0.0-8.0); HEMATOCRIT 35.4 % (42-54); IMMATURE GRANULOCYTE ABSOLUTE 0.06 K/uL (0-1); LYMPHOCYTES # (AUTO) 1.3 K/uL (1.0-4.8); LYMPHOCYTES % (AUTO) 12.3 % (21.0-51.0); MEAN CORPUSCULAR HGB CONC 32.8 g/dL (32.0-36.0); MEAN CORPUSCULAR VOLUME 91.5 fL (79-99); MONOCYTES # (AUTO) 0.6 K/uL (0.1-1.0); MONOCYTES % (AUTO) 5.9 % (3.0-13.0); NEUTROPHILS # (AUTO) 8.5 K/uL (1.8-7.7); NEUTROPHILS % (AUTO) 77.5 % (40.0-77.0); PLATELET COUNT (AUTO) 240 K/uL (130-400); RED BLOOD CELL COUNT(AUTO) 3.87 MIL/uL (4.50-6.20); RED CELL DISTRIBUTION WIDTH 14.3 % (11.0-15.5); WHITE BLOOD COUNT (AUTO) 10.9 K/uL (4.8-10.8)
[2023-05-13] MEDS ORDERED: BISACODYL 10 MG SUPP.RECT RC ONE ×2 (04:09→04:30)
[2023-05-13 04:28] LABS: CREATININE 1.6 mg/dL (0.5-1.5); POTASSIUM 5.3 mmol/L (3.5-5.1)
[2023-05-13 04:30] LABS: ALBUMIN 3.6 g/dL (3.5-5.0); BILIRUBIN,TOTAL 1.1 mg/dL (0.2-1.0); TOTAL PROTEIN, SERUM 7.2 g/dL (6.0-8.3)
[2023-05-13] MEDS ORDERED: POLY17PO4 PO (05:20)
[2023-05-13] MEDS ORDERED: NA ZIRCON CYCLOSIL(LOKELMA 10GM) PO ONE (05:30)
[2023-05-13 05:51] VITALS: BP 125/71; PULSE 80; RESP 16; O2SAT 97
== END 2023-05-13 05:51 | disposition home or self-care (01) ==
LOC: EDH 03:27
DX: K59.00 Constipation, unspecified (principal); I12.9 Hypertensive chronic kidney disease with stage 1 through stage 4 chronic kidney disease, or unspecified chronic kidney disease; E11.22 Type 2 diabetes mellitus with diabetic chronic kidney disease; N18.9 Chronic kidney disease, unspecified; E87.5 Hyperkalemia; E78.00 Pure hypercholesterolemia, unspecified; Z79.82 Long term (current) use of aspirin; Z79.84 Long term (current) use of oral hypoglycemic drugs; Z79.899 Other long term (current) drug therapy; Z98.890 Other specified postprocedural states
CPT/HCPCS: 36415; 80053; 83605; 83690; 85025

== ENCOUNTER → 2023-05-17 | Outpatient (CLI) | payer OTHER ==
[~2023-05-17] MED LIST changes: +POLY17PO4 PO
[2023-05-17 15:31] LABS: BASOPHILS # (AUTO) 0.12 K/uL (0.00-0.20); BASOPHILS % (AUTO) 1.1 % (0.0-5.0); EOSINOPHILS % (AUTO) 2.6 % (0.0-8.0); HEMATOCRIT 38.5 % (42-54); IMMATURE GRANULOCYTE ABSOLUTE 0.06 K/uL (0-1); LYMPHOCYTES # (AUTO) 1.3 K/uL (1.0-4.8); LYMPHOCYTES % (AUTO) 11.3 % (21.0-51.0); MEAN CORPUSCULAR HEMOGLOBIN 30.7 pg (27.0-33.0); MEAN CORPUSCULAR HGB CONC 31.9 g/dL (32.0-36.0); MONOCYTES # (AUTO) 0.9 K/uL (0.1-1.0); MONOCYTES % (AUTO) 7.5 % (3.0-13.0); NEUTROPHILS # (AUTO) 8.8 K/uL (1.8-7.7); PLATELET COUNT (AUTO) 230 K/uL (130-400); RED BLOOD CELL COUNT(AUTO) 4.01 MIL/uL (4.50-6.20); RED CELL DISTRIBUTION WIDTH 15.1 % (11.0-15.5); WHITE BLOOD COUNT (AUTO) 11.4 K/uL (4.8-10.8)
== END | disposition home or self-care (01) ==
LOC: LAB 12:30
PROVIDERS: ATTEND Physician Assistant
DX: I10 Essential (primary) hypertension (principal)
CPT/HCPCS: 36415; 85025

== ENCOUNTER 2023-05-21 15:50 | Inpatient (IN) | payer OTHER ==
[~2023-05-21] VITALS: Ht 160 cm; Wt 77.1 kg
[~2023-05-21 15:50] MED LIST changes: -ALBUTEROL; -HYDR-3421 PO; -MECL-302 PO; -PANT40TA54 PO; -SPIR25TA6 PO
[2023-05-21] MEDS ORDERED: ACETAMINOPHEN 500 MG TABLET PO PRN (16:30)
[2023-05-21] MEDS ORDERED: ACETAMINOPHEN 325 MG TAB PO PRN (16:30)
[2023-05-21] MEDS ORDERED: FUROSEMIDE 40MG VIAL IV ONE (16:30)
[2023-05-21 16:31] LABS: HEMATOCRIT 37.9 % (42-54); MEAN CORPUSCULAR HEMOGLOBIN 30.4 pg (27.0-33.0); MEAN CORPUSCULAR HGB CONC 32.5 g/dL (32.0-36.0); MEAN CORPUSCULAR VOLUME 93.6 fL (79-99); NUCLEATED RED BLOOD CELLS 0.3 % (0.0-0.19); PLATELET COUNT (AUTO) 235 K/uL (130-400); RED BLOOD CELL COUNT(AUTO) 4.05 MIL/uL (4.50-6.20); RED CELL DISTRIBUTION WIDTH 15.1 % (11.0-15.5); WHITE BLOOD COUNT (AUTO) 13.7 K/uL (4.8-10.8)
[2023-05-21 16:45] LABS: INR 1.47 (0.85-1.15); PROTHROMBIN TIME 16.6 SEC (9.6-11.6)
[2023-05-21 16:46] LABS: PARTIAL THROMBOPLASTIN TIME 26.5 SEC (26.3-35.5)
[2023-05-21 16:48] LABS: CREATININE 2.2 mg/dL (0.5-1.5); POTASSIUM 5.2 mmol/L (3.5-5.1)
[2023-05-21 17:01] LABS: BAND NEUTROPHILS % (MANUAL) 4 % (0-2); LYMPHOCYTES % (MANUAL) 12 % (22-44); MAN.DIFF COMMENT-IMPRESSION MANUAL DIFFERENTIAL; MONOCYTES % (MANUAL) 10 % (2-9); PLATELET MORPHOLOGY COMMENT ADEQUATE; SEGMENTED NEUTROPHILS % 74 % (40-70); TOTAL CELLS COUNTED 100; WBC MORPHOLOGY CONSISTENT W/DIFF
[2023-05-21 17:02] LABS: THYROID STIMULATING HORMONE 6.48 uIU/mL (0.36-3.74)
[2023-05-21 17:04] LABS: B-TYPE NATRIURETIC PEPTIDE 3700 pg/mL (0-100)
[2023-05-21 17:29] LABS: ALBUMIN 3.6 g/dL (3.5-5.0); BILIRUBIN,TOTAL 2.5 mg/dL (0.2-1.0)
[2023-05-21] MEDS: [UNRECOGNIZED DRUG - OTHER] IV SCH (17:30)
[2023-05-21] MEDS ORDERED: DOCUSATE SODIUM 100 MG CAP PO PRN (21:00)
[2023-05-21] MEDS ORDERED: NITROGLYCERIN 0.4 MG SL TAB SL PRN (21:00)
[2023-05-21] MEDS ORDERED: GUAIFENESIN SUGAR-FREE 100 MG/5 ML UDCUP PO PRN (21:00)
[2023-05-21] MEDS ORDERED: MAG/ALUM/SIMETH 30 ML UDCUP PO PRN (21:00)
[2023-05-21] MEDS: INSULIN HUMULIN R 100 UNIT/ML 3ML SQ SCH (21:00)
[2023-05-21] MEDS ORDERED: GUAIFENESIN-DM 200/20 MG 10 ML PO PRN (21:00)
[2023-05-21] MEDS ORDERED: HYDRALAZINE 25MG TABLET PO PRN (21:00)
[2023-05-21] MEDS ORDERED: DiphenhydrAMINE HCL 50 MG/ML VIAL IV PRN (21:00)
[2023-05-21] MEDS ORDERED: PANT40TA54 PO (21:30)
[2023-05-21] MEDS ORDERED: SPIR25TA6 PO (21:30)
[2023-05-21 21:57] LABS: ABG BASE EXCESS -5.1 mmol/L (-2.0-3.0); ABG HCO3 18.3 mmol/L (21.0-28.0); ABG OXYGEN SATURATION 90.1 % (95.0-99.0); ABG PCO2 29 mmHg (35-48); ABG PH 7.419 (7.35-7.450); DEVICE COMMENT N.C 2 LPM; HHb 9.8; PO2, ARTERIAL BG 62.2 mmHg (83.0-108.0); VENT MODE, BG RN COLLAZO (ROOM AIR)
[2023-05-21] MEDS: FAMOTIDINE 20MG VIAL IV SCH (22:57)
[2023-05-21] MEDS: SODIUM BICARBONATE 650 MG TAB PO SCH (22:57)
[2023-05-22] VITALS (8 sets, daily range): BP systolic 101–121; BP diastolic 45–75; PULSE 87–106; RESP 18–22; O2SAT 94
[2023-05-22] MEDS ORDERED: MECL-302 PO (01:04)
[2023-05-22] MEDS ORDERED: HYDR-3421 PO (01:04)
[2023-05-22] MEDS ORDERED: ALBUTEROL (01:04)
[2023-05-22] MEDS: CEFTRIAXONE 2GM VIAL IVPB SCH (01:30)
[2023-05-22] MEDS: AZITHROMYCIN 500MG+NS 250ML 250 ML IVPB SCH (01:59)
[2023-05-22 06:10] LABS: BASOPHILS % (AUTO) 0.9 % (0.0-5.0); EOSINOPHILS % (AUTO) 1.7 % (0.0-8.0); HEMATOCRIT 30.9 % (42-54); IMMATURE GRANULOCYTE ABSOLUTE 0.06 K/uL (0-1); LYMPHOCYTES # (AUTO) 0.9 K/uL (1.0-4.8); MEAN CORPUSCULAR HEMOGLOBIN 29.4 pg (27.0-33.0); MEAN CORPUSCULAR HGB CONC 32.4 g/dL (32.0-36.0); MEAN CORPUSCULAR VOLUME 90.9 fL (79-99); MONOCYTES % (AUTO) 8.3 % (3.0-13.0); NEUTROPHILS # (AUTO) 9.2 K/uL (1.8-7.7); NEUTROPHILS % (AUTO) 80.6 % (40.0-77.0); PLATELET COUNT (AUTO) 198 K/uL (130-400); RED CELL DISTRIBUTION WIDTH 14.7 % (11.0-15.5); WHITE BLOOD COUNT (AUTO) 11.4 K/uL (4.8-10.8)
[2023-05-22 06:16] LABS: INR 1.45 (0.85-1.15); PROTHROMBIN TIME 16.4 SEC (9.6-11.6)
[2023-05-22 06:17] LABS: PARTIAL THROMBOPLASTIN TIME 29.9 SEC (26.3-35.5)
[2023-05-22 06:22] LABS: ALBUMIN 3.1 g/dL (3.5-5.0); BILIRUBIN,TOTAL 1.6 mg/dL (0.2-1.0); CREATININE 1.8 mg/dL (0.5-1.5); POTASSIUM 4.2 mmol/L (3.5-5.1); TOTAL PROTEIN, SERUM 6.1 g/dL (6.0-8.3)
[2023-05-22 06:34] LABS: HEMOGLOBIN A1C 6.3 % (4.0-6.0)
[2023-05-22] MEDS: AMIODARONE 900MG VIAL 360 MG in DEXTROSE 5%-WATER 200 ML IV SCH (08:46)
[2023-05-22] MEDS: FUROSEMIDE 40MG VIAL IV ONE (08:59)
[2023-05-22] MEDS: SERTRALINE HCL 50 MG TABLET PO SCH (08:59)
[2023-05-22] MEDS: CARVEDILOL 3.125 MG TABLET PO SCH (09:00)
[2023-05-22] MEDS ORDERED: ASPIRIN 81 MG EC TAB PO SCH (09:00)
[2023-05-22] MEDS ORDERED: NON-FORMULARY MEDICATION 1 EACH (Sertraline HCl 100 MG) PO SCH (09:00)
[2023-05-22] MEDS: METOLAZONE 2.5 MG TABLET PO SCH (09:00)
[2023-05-22] MEDS: CLOPIDOGREL 75MG TAB PO SCH (09:01)
[2023-05-22] MEDS: APIXABAN 5 MG TABLET PO SCH (09:03)
[2023-05-22] MEDS ORDERED: MAGNESIUM OXIDE MISC SCH (09:30)
[2023-05-22] MEDS ORDERED: MAGNESIUM OXIDE 400 MG TABLET PO SCH (13:00)
[2023-05-22] MEDS: MAGNESIUM OXIDE 400 MG TABLET PO SCH ×2 (13:15→21:49)
[2023-05-22] MEDS: FUROSEMIDE 40MG VIAL IV SCH (21:49)
[2023-05-23] VITALS (8 sets, daily range): BP systolic 96–126; BP diastolic 56–68; PULSE 64–93; RESP 16–18; O2SAT 92–94
[2023-05-23] MEDS: AMIODARONE 900MG VIAL 540 MG in DEXTROSE 5%-WATER 300 ML IV SCH (02:17)
[2023-05-23 04:55] LABS: BASOPHILS # (AUTO) 0.07 K/uL (0.00-0.20); BASOPHILS % (AUTO) 0.8 % (0.0-5.0); EOSINOPHILS # (AUTO) 0.32 K/uL (0.00-0.70); EOSINOPHILS % (AUTO) 3.7 % (0.0-8.0); HEMATOCRIT 28.5 % (42-54); IMMATURE GRANULOCYTE ABSOLUTE 0.07 K/uL (0-1); LYMPHOCYTES # (AUTO) 0.8 K/uL (1.0-4.8); LYMPHOCYTES % (AUTO) 8.8 % (21.0-51.0); MEAN CORPUSCULAR HEMOGLOBIN 30.2 pg (27.0-33.0); MEAN CORPUSCULAR VOLUME 91.6 fL (79-99); MONOCYTES # (AUTO) 0.9 K/uL (0.1-1.0); MONOCYTES % (AUTO) 10.3 % (3.0-13.0); NEUTROPHILS # (AUTO) 6.5 K/uL (1.8-7.7); NEUTROPHILS % (AUTO) 75.6 % (40.0-77.0); NUCLEATED RED BLOOD CELLS 0.3 % (0.0-0.19); PLATELET COUNT (AUTO) 147 K/uL (130-400); RED BLOOD CELL COUNT(AUTO) 3.11 MIL/uL (4.50-6.20); RED CELL DISTRIBUTION WIDTH 14.6 % (11.0-15.5); WHITE BLOOD COUNT (AUTO) 8.7 K/uL (4.8-10.8)
[2023-05-23 05:13] LABS: B-TYPE NATRIURETIC PEPTIDE 2120 pg/mL (0-100)
[2023-05-23 05:46] LABS: ALBUMIN 2.8 g/dL (3.5-5.0); CREATININE 1.8 mg/dL (0.5-1.5); POTASSIUM 3.1 mmol/L (3.5-5.1); TOTAL PROTEIN, SERUM 5.7 g/dL (6.0-8.3)
[2023-05-23] MEDS: FUROSEMIDE 40 MG TABLET PO SCH (08:48)
[2023-05-23] MEDS: AMIODARONE 200 MG TABLET PO SCH (08:48)
[2023-05-23] MEDS: SODIUM CHLORIDE 30 ML DROPS NS PRN (19:26)
[2023-05-24 00:02] LABS: APPEARANCE,URINE CLEAR (CLEAR); BILIRUBIN,URINE NEGATIVE (NEGATIVE); COLOR,URINE LIGHT-YELLOW (YELLOW); GLUCOSE, URINE (UA) NEGATIVE (NEGATIVE); KETONES,URINE NEGATIVE (NEGATIVE); LEUKOCYTE ESTERASE ,URINE NEGATIVE Leu/uL (NEGATIVE); NITRATE,URINE NEGATIVE (NEGATIVE); OCCULT BLOOD,URINE NEGATIVE (NEGATIVE); PH,URINE 5.5 (5.0-8.0); PROTEIN,URINE NEGATIVE (NEGATIVE); UROBILINOGEN,URINE 0.2 mg/dL (0.2-1.0)
[2023-05-24 00:03] LABS: ADD UA MICROSCOPIC NO
[2023-05-24 00:17] LABS: SARS-CoV-2, RNA, NAAT NEGATIVE SARS CoV-2 (NEGATIVE)
[2023-05-24 00:19] LABS: INFLUENZA TYPE A Negative For Type A (NEGATIVE); INFLUENZA TYPE B Negative For Type B (NEGATIVE)
[2023-05-24 03:21] VITALS: BP 110/57; PULSE 82; RESP 18
[2023-05-24 04:01] LABS: HEMATOCRIT 28.2 % (42-54); MEAN CORPUSCULAR HEMOGLOBIN 29.5 pg (27.0-33.0); MEAN CORPUSCULAR HGB CONC 33.3 g/dL (32.0-36.0); MEAN CORPUSCULAR VOLUME 88.4 fL (79-99); NUCLEATED RED BLOOD CELLS 0.6 % (0.0-0.19); RED BLOOD CELL COUNT(AUTO) 3.19 MIL/uL (4.50-6.20); RED CELL DISTRIBUTION WIDTH 14.3 % (11.0-15.5); WHITE BLOOD COUNT (AUTO) 10.1 K/uL (4.8-10.8)
[2023-05-24 04:16] LABS: CREATININE 1.9 mg/dL (0.5-1.5); PHOSPHORUS 3.5 mg/dL (2.5-4.9)
[2023-05-24 04:49] LABS: POTASSIUM 2.8 mmol/L (3.5-5.1)
[2023-05-24] MEDS: KCL 20 MEQ ERTAB PO PRN (05:10)
[2023-05-24] MEDS: POTASSIUM CHLORIDE 10MEQ/100ML 100 ML IV PRN (06:24)
[2023-05-24 07:00] VITALS: BP 104/69; PULSE 83; RESP 20
[2023-05-24 11:00] VITALS: BP 100/67; PULSE 81; RESP 20
[2023-05-24] MEDS: POTASSIUM CHLORIDE 20MEQ/100ML 100 ML IV PRN (12:28)
[2023-05-24 16:00] VITALS: BP 110/62; PULSE 80; RESP 20
[2023-05-24 19:20] VITALS: BP 112/70; PULSE 81; RESP 22
[2023-05-24 20:00] VITALS: O2SAT 96
[2023-05-25] VITALS (8 sets, daily range): BP systolic 92–104; BP diastolic 40–69; PULSE 78–82; RESP 18–20; O2SAT 96–98
[2023-05-25 04:47] LABS: ALBUMIN 2.8 g/dL (3.5-5.0); PHOSPHORUS 3.5 mg/dL (2.5-4.9); POTASSIUM 3.4 mmol/L (3.5-5.1); TOTAL PROTEIN, SERUM 6.1 g/dL (6.0-8.3)
[2023-05-25] MEDS: FUROSEMIDE 40MG VIAL IV SCH (09:35)
[2023-05-26] VITALS (8 sets, daily range): BP systolic 98–112; BP diastolic 60–69; PULSE 52–85; RESP 18–20; O2SAT 96–97
[2023-05-26 06:01] LABS: BASOPHILS # (AUTO) 0.11 K/uL (0.00-0.20); BASOPHILS % (AUTO) 1.1 % (0.0-5.0); EOSINOPHILS # (AUTO) 0.32 K/uL (0.00-0.70); EOSINOPHILS % (AUTO) 3.1 % (0.0-8.0); HEMATOCRIT 28.3 % (42-54); IMMATURE GRANULOCYTE ABSOLUTE 0.06 K/uL (0-1); LYMPHOCYTES # (AUTO) 0.9 K/uL (1.0-4.8); LYMPHOCYTES % (AUTO) 8.7 % (21.0-51.0); MEAN CORPUSCULAR HEMOGLOBIN 29.4 pg (27.0-33.0); MEAN CORPUSCULAR HGB CONC 33.9 g/dL (32.0-36.0); MEAN CORPUSCULAR VOLUME 86.8 fL (79-99); MONOCYTES # (AUTO) 1.2 K/uL (0.1-1.0); MONOCYTES % (AUTO) 11.3 % (3.0-13.0); NEUTROPHILS # (AUTO) 7.8 K/uL (1.8-7.7); NEUTROPHILS % (AUTO) 75.2 % (40.0-77.0); NUCLEATED RED BLOOD CELLS 0.3 % (0.0-0.19); PLATELET COUNT (AUTO) 130 K/uL (130-400); RED BLOOD CELL COUNT(AUTO) 3.26 MIL/uL (4.50-6.20); RED CELL DISTRIBUTION WIDTH 14.1 % (11.0-15.5); WHITE BLOOD COUNT (AUTO) 10.3 K/uL (4.8-10.8)
[2023-05-26 06:09] LABS: CREATININE 2.1 mg/dL (0.5-1.5); POTASSIUM 3.4 mmol/L (3.5-5.1)
[2023-05-26 06:14] LABS: B-TYPE NATRIURETIC PEPTIDE 2210 pg/mL (0-100)
[2023-05-26] MEDS: FUROSEMIDE 40MG VIAL IV SCH (09:00)
[2023-05-26] MEDS: KCL 20 MEQ ERTAB PO SCH (09:00)
[2023-05-27] VITALS (8 sets, daily range): BP systolic 97–109; BP diastolic 56–69; PULSE 80–84; RESP 18–22; O2SAT 97
[2023-05-27 04:18] LABS: HEMATOCRIT 30.1 % (42-54); MEAN CORPUSCULAR HEMOGLOBIN 29.6 pg (27.0-33.0); MEAN CORPUSCULAR HGB CONC 32.9 g/dL (32.0-36.0); MEAN CORPUSCULAR VOLUME 90.1 fL (79-99); RED BLOOD CELL COUNT(AUTO) 3.34 MIL/uL (4.50-6.20); WHITE BLOOD COUNT (AUTO) 8.7 K/uL (4.8-10.8)
[2023-05-27 04:40] LABS: CREATININE 2.2 mg/dL (0.5-1.5); POTASSIUM 3.3 mmol/L (3.5-5.1)
[2023-05-27] MEDS: POLYETHYLENE GLYCOL 3350 17 GM POWD.PACK PO PRN (08:05)
[2023-05-27 11:00] LABS: INR 1.37 (0.85-1.15); PROTHROMBIN TIME 15.6 SEC (9.6-11.6)
[2023-05-27 11:01] LABS: PARTIAL THROMBOPLASTIN TIME 37.4 SEC (26.3-35.5)
[2023-05-27] MEDS: ALPRAZOLAM 0.5 MG TABLET PO PRN (14:56)
[2023-05-28] VITALS (8 sets, daily range): BP systolic 101–122; BP diastolic 55–67; PULSE 80; RESP 18–20; O2SAT 98
[2023-05-28 05:04] LABS: HEMATOCRIT 28.7 % (42-54); MEAN CORPUSCULAR HEMOGLOBIN 29.6 pg (27.0-33.0); MEAN CORPUSCULAR HGB CONC 32.8 g/dL (32.0-36.0); MEAN CORPUSCULAR VOLUME 90.3 fL (79-99); RED BLOOD CELL COUNT(AUTO) 3.18 MIL/uL (4.50-6.20); RED CELL DISTRIBUTION WIDTH 13.9 % (11.0-15.5); WHITE BLOOD COUNT (AUTO) 7.6 K/uL (4.8-10.8)
[2023-05-28 05:14] LABS: CREATININE 1.9 mg/dL (0.5-1.5); MAGNESIUM 2.1 mg/dL (1.80-2.40)
[2023-05-28 05:19] LABS: POTASSIUM 2.8 mmol/L (3.5-5.1)
[2023-05-29] VITALS (7 sets, daily range): BP systolic 99–111; BP diastolic 59–63; PULSE 78–82; RESP 18–20; O2SAT 95
[2023-05-29 07:21] LABS: BASOPHILS # (AUTO) 0.06 K/uL (0.00-0.20); BASOPHILS % (AUTO) 0.7 % (0.0-5.0); EOSINOPHILS # (AUTO) 0.25 K/uL (0.00-0.70); EOSINOPHILS % (AUTO) 3.1 % (0.0-8.0); HEMATOCRIT 29.2 % (42-54); IMMATURE GRANULOCYTE ABSOLUTE 0.03 K/uL (0-1); LYMPHOCYTES # (AUTO) 0.8 K/uL (1.0-4.8); LYMPHOCYTES % (AUTO) 9.5 % (21.0-51.0); MEAN CORPUSCULAR HEMOGLOBIN 28.6 pg (27.0-33.0); MEAN CORPUSCULAR HGB CONC 31.8 g/dL (32.0-36.0); MEAN CORPUSCULAR VOLUME 89.8 fL (79-99); MONOCYTES # (AUTO) 0.9 K/uL (0.1-1.0); MONOCYTES % (AUTO) 11.2 % (3.0-13.0); NEUTROPHILS # (AUTO) 6.1 K/uL (1.8-7.7); NEUTROPHILS % (AUTO) 75.1 % (40.0-77.0); PLATELET COUNT (AUTO) 179 K/uL (130-400); RED BLOOD CELL COUNT(AUTO) 3.25 MIL/uL (4.50-6.20); WHITE BLOOD COUNT (AUTO) 8.1 K/uL (4.8-10.8)
[2023-05-29 07:25] LABS: CREATININE 1.9 mg/dL (0.5-1.5); POTASSIUM 3.4 mmol/L (3.5-5.1)
[2023-05-29] MEDS: ONDANSETRON 4MG INJ IVP PRN (14:20)
[2023-05-29] MEDS: POLYETHYLENE GLYCOL 3350 17 GM POWD.PACK PO ONE (18:16)
[2023-05-29] MEDS: METOCLOPRAMIDE 10 MG/2 ML VIAL IVP ONE (18:17)
[2023-05-29] MEDS: DOCUSATE SODIUM 100 MG CAP PO SCH (20:34)
[2023-05-30] VITALS (9 sets, daily range): BP systolic 97–120; BP diastolic 55–69; PULSE 80–89; RESP 16–20; O2SAT 94–95
[2023-05-30] MEDS: POLYETHYLENE GLYCOL 3350 17 GM POWD.PACK PO SCH (09:13)
[2023-05-30] MEDS: BUMETANIDE 1MG/4ML VIAL IVP SCH (09:15)
[2023-05-30] MEDS: METOLAZONE 2.5 MG TABLET PO SCH (14:49)
[2023-05-31] VITALS (10 sets, daily range): BP systolic 92–174; BP diastolic 57–76; PULSE 68–95; RESP 18–21; O2SAT 94–95
[2023-05-31 04:05] LABS: BASOPHILS # (AUTO) 0.12 K/uL (0.00-0.20); BASOPHILS % (AUTO) 1.5 % (0.0-5.0); EOSINOPHILS # (AUTO) 0.32 K/uL (0.00-0.70); EOSINOPHILS % (AUTO) 4.1 % (0.0-8.0); HEMATOCRIT 30.4 % (42-54); IMMATURE GRANULOCYTE ABSOLUTE 0.05 K/uL (0-1); LYMPHOCYTES # (AUTO) 1.3 K/uL (1.0-4.8); LYMPHOCYTES % (AUTO) 16.3 % (21.0-51.0); MEAN CORPUSCULAR HEMOGLOBIN 28.5 pg (27.0-33.0); MEAN CORPUSCULAR HGB CONC 31.6 g/dL (32.0-36.0); MEAN CORPUSCULAR VOLUME 90.2 fL (79-99); MONOCYTES # (AUTO) 0.9 K/uL (0.1-1.0); NEUTROPHILS # (AUTO) 5.1 K/uL (1.8-7.7); NEUTROPHILS % (AUTO) 65.5 % (40.0-77.0); PLATELET COUNT (AUTO) 216 K/uL (130-400); RED BLOOD CELL COUNT(AUTO) 3.37 MIL/uL (4.50-6.20); RED CELL DISTRIBUTION WIDTH 14.1 % (11.0-15.5); WHITE BLOOD COUNT (AUTO) 7.8 K/uL (4.8-10.8)
[2023-05-31 04:19] LABS: MAGNESIUM 2.4 mg/dL (1.80-2.40); POTASSIUM 3.5 mmol/L (3.5-5.1)
[2023-05-31] MEDS: LACTULOSE 20 GM/30 ML UDCUP PO PRN (06:18)
[2023-05-31] MEDS: BUMETANIDE 1MG/4ML VIAL IVP SCH (08:24)
[2023-05-31] MEDS: POTASSIUM CHLORIDE 10% ELIXIR 20 MEQ/15 ML UDCUP PO PRN (19:09)
[2023-05-31] MEDS: ZOLPIDEM TARTRATE 5 MG TAB PO PRN (20:51)
[2023-06-01] VITALS (8 sets, daily range): BP systolic 96–126; BP diastolic 63–71; PULSE 69–83; RESP 16–18; O2SAT 92–96
[2023-06-01 04:20] LABS: CREATININE 2.4 mg/dL (0.5-1.5); POTASSIUM 3.8 mmol/L (3.5-5.1)
[2023-06-01] MEDS: BUMETANIDE 1MG/4ML VIAL IVP SCH (19:58)
[2023-06-02] VITALS (9 sets, daily range): BP systolic 90–114; BP diastolic 52–72; PULSE 71–82; RESP 16–18; O2SAT 97–100
[2023-06-02 05:13] LABS: CREATININE 2.7 mg/dL (0.5-1.5); POTASSIUM 3.4 mmol/L (3.5-5.1)
[2023-06-02] MEDS: BUMETANIDE 1 MG TAB PO SCH (09:58)
[2023-06-03] VITALS (7 sets, daily range): BP systolic 98–106; BP diastolic 65–76; PULSE 77–80; RESP 18; O2SAT 95–97
[2023-06-03 05:03] LABS: BASOPHILS # (AUTO) 0.14 K/uL (0.00-0.20); BASOPHILS % (AUTO) 1.7 % (0.0-5.0); EOSINOPHILS # (AUTO) 0.28 K/uL (0.00-0.70); EOSINOPHILS % (AUTO) 3.5 % (0.0-8.0); IMMATURE GRANULOCYTE ABSOLUTE 0.06 K/uL (0-1); LYMPHOCYTES # (AUTO) 1.5 K/uL (1.0-4.8); LYMPHOCYTES % (AUTO) 18.4 % (21.0-51.0); MEAN CORPUSCULAR HEMOGLOBIN 28.5 pg (27.0-33.0); MEAN CORPUSCULAR HGB CONC 31.5 g/dL (32.0-36.0); MEAN CORPUSCULAR VOLUME 90.7 fL (79-99); MONOCYTES # (AUTO) 0.9 K/uL (0.1-1.0); MONOCYTES % (AUTO) 11.5 % (3.0-13.0); NEUTROPHILS # (AUTO) 5.2 K/uL (1.8-7.7); NEUTROPHILS % (AUTO) 64.2 % (40.0-77.0); PLATELET COUNT (AUTO) 285 K/uL (130-400); RED BLOOD CELL COUNT(AUTO) 3.75 MIL/uL (4.50-6.20); RED CELL DISTRIBUTION WIDTH 14.3 % (11.0-15.5); WHITE BLOOD COUNT (AUTO) 8.1 K/uL (4.8-10.8)
[2023-06-03 05:08] LABS: CREATININE 3.1 mg/dL (0.5-1.5); MAGNESIUM 2.8 mg/dL (1.80-2.40); POTASSIUM 3.5 mmol/L (3.5-5.1)
[2023-06-03 08:37] LABS: ALBUMIN 2.7 g/dL (3.5-5.0); BILIRUBIN,TOTAL 1.8 mg/dL (0.2-1.0)
[2023-06-03 12:28] LABS: APPEARANCE,URINE CLEAR (CLEAR); BILIRUBIN,URINE NEGATIVE (NEGATIVE); COLOR,URINE LIGHT-YELLOW (YELLOW); GLUCOSE, URINE (UA) NEGATIVE (NEGATIVE); KETONES,URINE NEGATIVE (NEGATIVE); LEUKOCYTE ESTERASE ,URINE NEGATIVE Leu/uL (NEGATIVE); NITRATE,URINE NEGATIVE (NEGATIVE); OCCULT BLOOD,URINE NEGATIVE (NEGATIVE); PH,URINE 6.5 (5.0-8.0); PROTEIN,URINE NEGATIVE (NEGATIVE); UROBILINOGEN,URINE 0.2 mg/dL (0.2-1.0)
[2023-06-03 13:10] LABS: RBC,URINE 0-1 /HPF (0-1); WBC,URINE 0-1 /HPF (0-1)
[2023-06-03 13:11] LABS: HYALINE CASTS, URINE 26-50 /LPF (0-1 /LPF); MUCUS,URINE RARE LPF (None Seen); OTHER CASTS, URINE 3 /LPF (None Seen); SQUAMOUS EPITHELIAL CELL,UR RARE /HPF (0-2)
[2023-06-03 17:36] LABS: CHLORIDE,URINE RANDOM 93 mmol/L (110-250); CREATININE,URINE RANDOM 42 mg/dL (30-135); POTASSIUM,URINE RANDOM 69 mmol/L (25-125); SODIUM,URINE RANDOM 45 mmol/l (40-220)
[2023-06-04] VITALS (8 sets, daily range): BP systolic 91–102; BP diastolic 56–73; PULSE 78–85; RESP 18–22; O2SAT 97
[2023-06-04 04:05] LABS: HEMATOCRIT 33.6 % (42-54); MEAN CORPUSCULAR HEMOGLOBIN 28.5 pg (27.0-33.0); MEAN CORPUSCULAR HGB CONC 32.1 g/dL (32.0-36.0); MEAN CORPUSCULAR VOLUME 88.7 fL (79-99); RED BLOOD CELL COUNT(AUTO) 3.79 MIL/uL (4.50-6.20); RED CELL DISTRIBUTION WIDTH 14.6 % (11.0-15.5); WHITE BLOOD COUNT (AUTO) 8.4 K/uL (4.8-10.8)
[2023-06-04 04:28] LABS: ALBUMIN 2.6 g/dL (3.5-5.0); BILIRUBIN,TOTAL 1.5 mg/dL (0.2-1.0); CREATININE 3.3 mg/dL (0.5-1.5); MAGNESIUM 2.8 mg/dL (1.80-2.40); PHOSPHORUS 4.7 mg/dL (2.5-4.9); POTASSIUM 3.2 mmol/L (3.5-5.1); THYROID STIMULATING HORMONE 4.14 uIU/mL (0.36-3.74); TOTAL PROTEIN, SERUM 5.8 g/dL (6.0-8.3); URIC ACID 13.2 mg/dL (2.6-7.2)
[2023-06-04 04:31] LABS: % IRON SATURATION 7.3 % (30-44)
[2023-06-04] MEDS: APIXABAN 5 MG TABLET PO SCH (08:39)
[2023-06-04] MEDS: Vitamin B Complex/Vit C/Folic Acid PO SCH (08:39)
[2023-06-04] MEDS: FAMOTIDINE 20MG TAB PO SCH (20:19)
[2023-06-05] VITALS (9 sets, daily range): BP systolic 93–104; BP diastolic 62–72; PULSE 79–86; RESP 16–18; O2SAT 94–96
[2023-06-05 05:23] LABS: HEMATOCRIT 32.7 % (42-54); MEAN CORPUSCULAR HEMOGLOBIN 28.6 pg (27.0-33.0); MEAN CORPUSCULAR HGB CONC 32.1 g/dL (32.0-36.0); MEAN CORPUSCULAR VOLUME 89.1 fL (79-99); RED BLOOD CELL COUNT(AUTO) 3.67 MIL/uL (4.50-6.20); RED CELL DISTRIBUTION WIDTH 14.5 % (11.0-15.5)
[2023-06-05 05:40] LABS: ALBUMIN 2.7 g/dL (3.5-5.0); BILIRUBIN,TOTAL 1.3 mg/dL (0.2-1.0); CREATININE 3.1 mg/dL (0.5-1.5); TOTAL PROTEIN, SERUM 5.9 g/dL (6.0-8.3)
[2023-06-05] MEDS: BUMETANIDE 1MG/4ML VIAL IV SCH (10:14)
[2023-06-05 17:05] LABS: HEPATITIS A IGM ANTIBODY Non-Reactive (Nonreactive); HEPATITIS B CORE IGM ANTIBODY Non-Reactive (Negative); HEPATITIS B SURFACE ANTIGEN Non-Reactive (Nonreactive); HEPATITIS C ANTIBODY Non-Reactive (Nonreactive)
[2023-06-06] VITALS (28 sets, daily range): BP systolic 82–113; BP diastolic 41–72; PULSE 70–84; RESP 16–18; O2SAT 96–100
[2023-06-06 05:22] LABS: BASOPHILS # (AUTO) 0.11 K/uL (0.00-0.20); BASOPHILS % (AUTO) 1.6 % (0.0-5.0); EOSINOPHILS # (AUTO) 0.26 K/uL (0.00-0.70); EOSINOPHILS % (AUTO) 3.7 % (0.0-8.0); HEMATOCRIT 35.2 % (42-54); IMMATURE GRANULOCYTE ABSOLUTE 0.04 K/uL (0-1); LYMPHOCYTES % (AUTO) 14.2 % (21.0-51.0); MEAN CORPUSCULAR HEMOGLOBIN 28.5 pg (27.0-33.0); MEAN CORPUSCULAR HGB CONC 31.5 g/dL (32.0-36.0); MEAN CORPUSCULAR VOLUME 90.3 fL (79-99); MONOCYTES # (AUTO) 0.7 K/uL (0.1-1.0); MONOCYTES % (AUTO) 9.9 % (3.0-13.0); NEUTROPHILS # (AUTO) 4.9 K/uL (1.8-7.7); PLATELET COUNT (AUTO) 229 K/uL (130-400); RED CELL DISTRIBUTION WIDTH 14.5 % (11.0-15.5)
[2023-06-06 05:38] LABS: ALBUMIN 2.7 g/dL (3.5-5.0); BILIRUBIN,TOTAL 1.3 mg/dL (0.2-1.0); CREATININE 2.9 mg/dL (0.5-1.5); PHOSPHORUS 4.3 mg/dL (2.5-4.9); TOTAL PROTEIN, SERUM 5.7 g/dL (6.0-8.3)
[2023-06-06 05:51] LABS: POTASSIUM 2.9 mmol/L (3.5-5.1)
[2023-06-06] MEDS ORDERED: PHARMACY COMMUNICATION MISC SCH (07:30)
[2023-06-06] MEDS: POTASSIUM CHLORIDE 20MEQ/100ML 100 ML IV ONE ×2 (07:47→11:35)
[2023-06-06] MEDS ORDERED: WATER IV ONE (08:00)
[2023-06-06] MEDS ORDERED: DEXTROSE 5% IV ONE (08:00)
[2023-06-06] MEDS ORDERED: AMIODARONE IV ONE (08:00)
[2023-06-06] MEDS: WATER IV ONE ×2 (08:46→10:04)
[2023-06-06] MEDS: DEXTROSE 5% IV ONE ×2 (08:46→10:04)
[2023-06-06] MEDS: AMIODARONE IV ONE ×2 (08:46→10:04)
[2023-06-06] MEDS: APIXABAN 2.5 MG TABLET PO SCH (09:00)
[2023-06-06] MEDS: PROPOFOL 10 MG/ML 20ML VIAL IV ONE (10:14)
[2023-06-06] MEDS: MILRINONE-D5W 20 MG/100 ML 100 ML IV SCH (18:42)
[2023-06-07] VITALS (8 sets, daily range): BP systolic 95–111; BP diastolic 52–78; PULSE 80–91; RESP 16–20; O2SAT 94
[2023-06-07 04:16] LABS: BASOPHILS # (AUTO) 0.12 K/uL (0.00-0.20); BASOPHILS % (AUTO) 1.5 % (0.0-5.0); EOSINOPHILS # (AUTO) 0.27 K/uL (0.00-0.70); EOSINOPHILS % (AUTO) 3.3 % (0.0-8.0); HEMATOCRIT 30.3 % (42-54); IMMATURE GRANULOCYTE ABSOLUTE 0.04 K/uL (0-1); LYMPHOCYTES # (AUTO) 0.8 K/uL (1.0-4.8); LYMPHOCYTES % (AUTO) 9.6 % (21.0-51.0); MEAN CORPUSCULAR VOLUME 87.6 fL (79-99); MONOCYTES # (AUTO) 0.8 K/uL (0.1-1.0); NEUTROPHILS # (AUTO) 6.1 K/uL (1.8-7.7); NEUTROPHILS % (AUTO) 75.1 % (40.0-77.0); PLATELET COUNT (AUTO) 228 K/uL (130-400); RED BLOOD CELL COUNT(AUTO) 3.46 MIL/uL (4.50-6.20); RED CELL DISTRIBUTION WIDTH 14.2 % (11.0-15.5); WHITE BLOOD COUNT (AUTO) 8.1 K/uL (4.8-10.8)
[2023-06-07 04:26] LABS: WBC MORPHOLOGY CONSISTENT W/DIFF
[2023-06-07 04:43] LABS: ALBUMIN 2.7 g/dL (3.5-5.0); BILIRUBIN,TOTAL 1.5 mg/dL (0.2-1.0); CREATININE 2.8 mg/dL (0.5-1.5); TOTAL PROTEIN, SERUM 5.6 g/dL (6.0-8.3)
[2023-06-07 05:00] LABS: POTASSIUM 2.8 mmol/L (3.5-5.1)
[2023-06-07] MEDS: AMIODARONE 200 MG TABLET PO SCH (09:16)
[2023-06-07] MEDS ORDERED: IRON SUCROSE COMPLEX 100 MG/5 ML VIAL IVP SCH (15:30)
[2023-06-07] MEDS: KCL 20 MEQ ERTAB PO SCH (21:05)
[2023-06-07] MEDS: IRON SUCROSE COMPLEX 300 MG+/NS 250ML IV SCH (22:44)
[2023-06-08] VITALS (8 sets, daily range): BP systolic 95–110; BP diastolic 64–70; PULSE 80–88; RESP 18–20; O2SAT 94–95
[2023-06-08 04:03] LABS: % IRON SATURATION 95.6 % (30-44)
[2023-06-08 04:12] LABS: BASOPHILS % (AUTO) 1.3 % (0.0-5.0); EOSINOPHILS % (AUTO) 2.6 % (0.0-8.0); HEMATOCRIT 31.6 % (42-54); IMMATURE GRANULOCYTE ABSOLUTE 0.04 K/uL (0-1); LYMPHOCYTES # (AUTO) 0.7 K/uL (1.0-4.8); LYMPHOCYTES % (AUTO) 8.9 % (21.0-51.0); MEAN CORPUSCULAR HEMOGLOBIN 28.1 pg (27.0-33.0); MEAN CORPUSCULAR HGB CONC 31.3 g/dL (32.0-36.0); MEAN CORPUSCULAR VOLUME 89.8 fL (79-99); MONOCYTES # (AUTO) 0.8 K/uL (0.1-1.0); MONOCYTES % (AUTO) 9.7 % (3.0-13.0); PLATELET COUNT (AUTO) 220 K/uL (130-400); RED BLOOD CELL COUNT(AUTO) 3.52 MIL/uL (4.50-6.20); RED CELL DISTRIBUTION WIDTH 14.1 % (11.0-15.5); WHITE BLOOD COUNT (AUTO) 7.8 K/uL (4.8-10.8)
[2023-06-08 04:14] LABS: ALBUMIN 2.8 g/dL (3.5-5.0); BILIRUBIN,TOTAL 1.7 mg/dL (0.2-1.0); CREATININE 2.6 mg/dL (0.5-1.5); MAGNESIUM 1.8 mg/dL (1.80-2.40); PHOSPHORUS 2.9 mg/dL (2.5-4.9); POTASSIUM 3.3 mmol/L (3.5-5.1)
[2023-06-08] MEDS ORDERED: COMPOUND IV MISC 1 EACH IVSOLN MISC PRN (12:30)
[2023-06-08] MEDS: APIXABAN 2.5 MG TABLET PO SCH (21:06)
[2023-06-09] VITALS (8 sets, daily range): BP systolic 99–124; BP diastolic 69–78; PULSE 66–86; RESP 18; O2SAT 94–98
[2023-06-09 05:35] LABS: BASOPHILS # (AUTO) 0.09 K/uL (0.00-0.20); BASOPHILS % (AUTO) 1.2 % (0.0-5.0); EOSINOPHILS # (AUTO) 0.29 K/uL (0.00-0.70); EOSINOPHILS % (AUTO) 3.9 % (0.0-8.0); HEMATOCRIT 31.7 % (42-54); IMMATURE GRANULOCYTE ABSOLUTE 0.03 K/uL (0-1); LYMPHOCYTES # (AUTO) 0.8 K/uL (1.0-4.8); LYMPHOCYTES % (AUTO) 10.3 % (21.0-51.0); MEAN CORPUSCULAR HEMOGLOBIN 27.4 pg (27.0-33.0); MEAN CORPUSCULAR HGB CONC 31.2 g/dL (32.0-36.0); MEAN CORPUSCULAR VOLUME 87.8 fL (79-99); MONOCYTES # (AUTO) 0.9 K/uL (0.1-1.0); MONOCYTES % (AUTO) 11.3 % (3.0-13.0); NEUTROPHILS # (AUTO) 5.5 K/uL (1.8-7.7); NEUTROPHILS % (AUTO) 72.9 % (40.0-77.0); PLATELET COUNT (AUTO) 191 K/uL (130-400); RED BLOOD CELL COUNT(AUTO) 3.61 MIL/uL (4.50-6.20); RED CELL DISTRIBUTION WIDTH 14.2 % (11.0-15.5); WHITE BLOOD COUNT (AUTO) 7.5 K/uL (4.8-10.8)
[2023-06-09 07:56] LABS: ALBUMIN 2.7 g/dL (3.5-5.0); BILIRUBIN,TOTAL 1.3 mg/dL (0.2-1.0); CREATININE 2.3 mg/dL (0.5-1.5); POTASSIUM 3.3 mmol/L (3.5-5.1); TOTAL PROTEIN, SERUM 5.9 g/dL (6.0-8.3)
[2023-06-10] VITALS: BP 118/74; PULSE 88; RESP 18
[2023-06-10 03:49] VITALS: BP 103/57; PULSE 87; RESP 18
[2023-06-10 04:01] LABS: CREATININE 2.3 mg/dL (0.5-1.5); POTASSIUM 3.7 mmol/L (3.5-5.1)
[2023-06-10 08:00] VITALS: BP 112/69; PULSE 89; RESP 20
[2023-06-10 08:15] VITALS: PULSE 90; PULSE 96; RESP 18; O2SAT 92; O2SAT 93
[2023-06-10] MEDS ORDERED: CARV3.1262 PO (10:01)
[2023-06-10] MEDS ORDERED: BUME1TAB7 PO (10:01)
[2023-06-10] MEDS ORDERED: APIX5TAB PO (10:01)
[2023-06-10 10:47] VITALS: O2SAT 98
[2023-06-10 12:00] VITALS: BP 118/72; PULSE 84; RESP 20
[2023-06-10] MEDS ORDERED: CLOP-31 PO (22:46)
== END 2023-06-10 14:30 | disposition home health service (06) | DRG 871 ==
LOC: EDH 15:50 → EDHIP 15:51 → 2AH 05-22 04:49
PROVIDERS: ADMIT Internal Medicine; ATTEND Internal Medicine
PROC: 02HV33Z Insertion of Infusion Device into Superior Vena Cava, Percutaneous Approach (ICD-10-PCS; principal; 2023-05-27)
PROC: B548ZZA Ultrasonography of Superior Vena Cava, Guidance (ICD-10-PCS; 2023-05-27)
DX: A41.9 Sepsis, unspecified organism (principal); I50.43 Acute on chronic combined systolic (congestive) and diastolic (congestive) heart failure; J15.9 Unspecified bacterial pneumonia; J96.01 Acute respiratory failure with hypoxia; K72.00 Acute and subacute hepatic failure without coma; K76.7 Hepatorenal syndrome; I13.0 Hypertensive heart and chronic kidney disease with heart failure and stage 1 through stage 4 chronic kidney disease, or unspecified chronic kidney disease; N17.9 Acute kidney failure, unspecified; E44.1 Mild protein-calorie malnutrition; E87.20 Acidosis, unspecified; I25.810 Atherosclerosis of coronary artery bypass graft(s) without angina pectoris; I48.19 Other persistent atrial fibrillation; E87.5 Hyperkalemia; E87.6 Hypokalemia; D64.9 Anemia, unspecified; E11.22 Type 2 diabetes mellitus with diabetic chronic kidney disease; E11.51 Type 2 diabetes mellitus with diabetic peripheral angiopathy without gangrene; E78.00 Pure hypercholesterolemia, unspecified; Z20.822 Contact with and (suspected) exposure to COVID-19; F41.9 Anxiety disorder, unspecified; I25.10 Atherosclerotic heart disease of native coronary artery without angina pectoris; I25.5 Ischemic cardiomyopathy; I27.20 Pulmonary hypertension, unspecified; I50.82 Biventricular heart failure; K80.20 Calculus of gallbladder without cholecystitis without obstruction; I51.3 Intracardiac thrombosis, not elsewhere classified; N18.30 Chronic kidney disease, stage 3 unspecified; N28.1 Cyst of kidney, acquired; Z79.01 Long term (current) use of anticoagulants; Z79.02 Long term (current) use of antithrombotics/antiplatelets; Z79.82 Long term (current) use of aspirin; Z79.84 Long term (current) use of oral hypoglycemic drugs; Z79.899 Other long term (current) drug therapy; I25.2 Old myocardial infarction; Z86.74 Personal history of sudden cardiac arrest; Z87.891 Personal history of nicotine dependence; Z95.5 Presence of coronary angioplasty implant and graft; Z95.810 Presence of automatic (implantable) cardiac defibrillator; Z68.30 Body mass index [BMI] 30.0-30.9, adult
CPT/HCPCS: 36415; 36600; 71045; 76700; 76705; 76770; 80048; 80053; 80074; 81001; 81003; 82010; 82140; 82150; 82306; 82435; 82436; 82570; 82728; 82803; 82947; 82948; 83036; 83540; 83550; 83605; 83690; 83735; 83880; 83935; 84100; 84132; 84133; 84145; 84295; 84300; 84443; 84484; 84550; 85018; 85025; 85027; 85610; 85730; 87635; 87804; 93005; 93306; 93312; 94760; C1894; G0378; J0282; J0456; J0696; J1756; J1815; J1940; J2260; J2405; J2704; J2765; J3480; J3490; J7050; J7060; G8980-CI; G8983-CI

== ENCOUNTER → 2023-05-21 | Outpatient (CLI) | payer OTHER ==
[~2023-05-21] MED LIST changes: +ALBUTEROL; +HYDR-3421 PO; +MECL-302 PO; +PANT40TA54 PO; +SPIR25TA6 PO
[2023-05-21 12:04] LABS: BASOPHILS # (AUTO) 0.14 K/uL (0.00-0.20); BASOPHILS % (AUTO) 0.9 % (0.0-5.0); EOSINOPHILS # (AUTO) 0.14 K/uL (0.00-0.70); EOSINOPHILS % (AUTO) 0.9 % (0.0-8.0); HEMATOCRIT 37.2 % (42-54); IMMATURE GRANULOCYTE ABSOLUTE 0.16 K/uL (0-1); LYMPHOCYTES # (AUTO) 1.6 K/uL (1.0-4.8); LYMPHOCYTES % (AUTO) 10.4 % (21.0-51.0); MEAN CORPUSCULAR HGB CONC 31.2 g/dL (32.0-36.0); MEAN CORPUSCULAR VOLUME 96.1 fL (79-99); MONOCYTES # (AUTO) 1.8 K/uL (0.1-1.0); MONOCYTES % (AUTO) 11.5 % (3.0-13.0); NEUTROPHILS # (AUTO) 11.8 K/uL (1.8-7.7); NEUTROPHILS % (AUTO) 75.3 % (40.0-77.0); NUCLEATED RED BLOOD CELLS 0.3 % (0.0-0.19); PLATELET COUNT (AUTO) 240 K/uL (130-400); RED BLOOD CELL COUNT(AUTO) 3.87 MIL/uL (4.50-6.20); WHITE BLOOD COUNT (AUTO) 15.7 K/uL (4.8-10.8)
[2023-05-21 12:51] LABS: ALBUMIN 3.4 g/dL (3.5-5.0); BILIRUBIN,TOTAL 2.7 mg/dL (0.2-1.0); CREATININE 2.2 mg/dL (0.5-1.5); POTASSIUM 5.9 mmol/L (3.5-5.1); TOTAL PROTEIN, SERUM 6.7 g/dL (6.0-8.3)
== END | disposition home or self-care (01) ==
LOC: LAB 08:44
PROVIDERS: ATTEND Physician Assistant
DX: I10 Essential (primary) hypertension (principal)
CPT/HCPCS: 36415; 80053; 83735; 83880; 85025

== ENCOUNTER → 2023-06-12 | Outpatient (CLI) | payer OTHER ==
[~2023-06-12] MED LIST changes: -AEC81 PO; +ALBUTEROL; +APIX5TAB PO; +BUME1TAB7 PO; +CARV3.1262 PO; -FAMO40TA7 PO; -FURO20TA4 PO; +HYDR-3421 PO; +MECL-302 PO; -METF-446 PO; -METO-408 PO; +PANT40TA54 PO; -POLY17PO4 PO; +SPIR25TA6 PO; -vitamin b 12 PO
[2023-06-12 12:15] LABS: BASOPHILS # (AUTO) 0.09 K/uL (0.00-0.20); BASOPHILS % (AUTO) 0.6 % (0.0-5.0); EOSINOPHILS # (AUTO) 0.04 K/uL (0.00-0.70); EOSINOPHILS % (AUTO) 0.3 % (0.0-8.0); IMMATURE GRANULOCYTE ABSOLUTE 0.13 K/uL (0-1); LYMPHOCYTES # (AUTO) 1.7 K/uL (1.0-4.8); LYMPHOCYTES % (AUTO) 12.2 % (21.0-51.0); MEAN CORPUSCULAR HEMOGLOBIN 28.3 pg (27.0-33.0); MEAN CORPUSCULAR HGB CONC 30.6 g/dL (32.0-36.0); MEAN CORPUSCULAR VOLUME 92.6 fL (79-99); MONOCYTES # (AUTO) 1.3 K/uL (0.1-1.0); MONOCYTES % (AUTO) 9.5 % (3.0-13.0); NEUTROPHILS # (AUTO) 10.7 K/uL (1.8-7.7); NEUTROPHILS % (AUTO) 76.5 % (40.0-77.0); NUCLEATED RED BLOOD CELLS 0.4 % (0.0-0.19); PLATELET COUNT (AUTO) 212 K/uL (130-400); RED BLOOD CELL COUNT(AUTO) 3.78 MIL/uL (4.50-6.20); RED CELL DISTRIBUTION WIDTH 15.1 % (11.0-15.5)
[2023-06-12 12:53] LABS: ALBUMIN 2.8 g/dL (3.5-5.0); BILIRUBIN,TOTAL 3.4 mg/dL (0.2-1.0); MAGNESIUM 1.8 mg/dL (1.80-2.40); POTASSIUM 5.1 mmol/L (3.5-5.1)
== END | disposition home or self-care (01) ==
LOC: LAB 09:12
PROVIDERS: ATTEND Physician Assistant
DX: I50.22 Chronic systolic (congestive) heart failure (principal)
CPT/HCPCS: 36415; 80053; 83735; 83880; 85025

== ENCOUNTER → 2023-06-19 | Outpatient (CLI) | payer OTHER ==
[2023-06-19 16:19] LABS: BASOPHILS # (AUTO) 0.06 K/uL (0.00-0.20); BASOPHILS % (AUTO) 0.9 % (0.0-5.0); EOSINOPHILS # (AUTO) 0.35 K/uL (0.00-0.70); EOSINOPHILS % (AUTO) 5.1 % (0.0-8.0); HEMATOCRIT 35.9 % (42-54); IMMATURE GRANULOCYTE ABSOLUTE 0.03 K/uL (0-1); LYMPHOCYTES # (AUTO) 1.1 K/uL (1.0-4.8); LYMPHOCYTES % (AUTO) 15.2 % (21.0-51.0); MEAN CORPUSCULAR HEMOGLOBIN 28.3 pg (27.0-33.0); MEAN CORPUSCULAR HGB CONC 31.5 g/dL (32.0-36.0); MONOCYTES # (AUTO) 0.7 K/uL (0.1-1.0); MONOCYTES % (AUTO) 9.6 % (3.0-13.0); NEUTROPHILS # (AUTO) 4.8 K/uL (1.8-7.7); NEUTROPHILS % (AUTO) 68.8 % (40.0-77.0); PLATELET COUNT (AUTO) 147 K/uL (130-400); RED BLOOD CELL COUNT(AUTO) 3.99 MIL/uL (4.50-6.20); RED CELL DISTRIBUTION WIDTH 17.7 % (11.0-15.5); WHITE BLOOD COUNT (AUTO) 6.9 K/uL (4.8-10.8)
[2023-06-19 16:44] LABS: ALBUMIN 2.9 g/dL (3.5-5.0); BILIRUBIN,TOTAL 1.7 mg/dL (0.2-1.0); CREATININE 2.6 mg/dL (0.5-1.5); MAGNESIUM 2.5 mg/dL (1.80-2.40); POTASSIUM 3.6 mmol/L (3.5-5.1); TOTAL PROTEIN, SERUM 6.2 g/dL (6.0-8.3)
== END | disposition home or self-care (01) ==
LOC: LAB 11:49
PROVIDERS: ATTEND Internal Medicine Cardiovascular Disease
DX: I50.22 Chronic systolic (congestive) heart failure (principal)
CPT/HCPCS: 36415; 80053; 83735; 83880; 85025

== ENCOUNTER 2023-07-11 15:05 | Inpatient (IN) | payer OTHER ==
[~2023-07-11] VITALS: Ht 180.3 cm; Wt 68.0 kg
[~2023-07-11 15:05] MED LIST changes: +CARV-158 PO; -CARV3.1262 PO; +MECL-160 PO; -MECL-302 PO
[2023-07-11 15:48] LABS: BASOPHILS # (AUTO) 0.01 K/uL (0.00-0.20); BASOPHILS % (AUTO) 0.1 % (0.0-5.0); EOSINOPHILS # (AUTO) 0.02 K/uL (0.00-0.70); EOSINOPHILS % (AUTO) 0.2 % (0.0-8.0); IMMATURE GRANULOCYTE ABSOLUTE 0.04 K/uL (0-1); LYMPHOCYTES # (AUTO) 0.9 K/uL (1.0-4.8); LYMPHOCYTES % (AUTO) 9.8 % (21.0-51.0); MEAN CORPUSCULAR HEMOGLOBIN 28.5 pg (27.0-33.0); MEAN CORPUSCULAR HGB CONC 32.1 g/dL (32.0-36.0); MONOCYTES # (AUTO) 0.7 K/uL (0.1-1.0); MONOCYTES % (AUTO) 7.6 % (3.0-13.0); NEUTROPHILS # (AUTO) 7.6 K/uL (1.8-7.7); NEUTROPHILS % (AUTO) 81.9 % (40.0-77.0); NUCLEATED RED BLOOD CELLS 0.3 % (0.0-0.19); PLATELET COUNT (AUTO) 127 K/uL (130-400); RED BLOOD CELL COUNT(AUTO) 4.38 MIL/uL (4.50-6.20); RED CELL DISTRIBUTION WIDTH 20.5 % (11.0-15.5); WHITE BLOOD COUNT (AUTO) 9.3 K/uL (4.8-10.8)
[2023-07-11 16:03] LABS: CREATININE 2.2 mg/dL (0.5-1.5); POTASSIUM 3.2 mmol/L (3.5-5.1)
[2023-07-11 16:06] LABS: ALBUMIN 2.7 g/dL (3.5-5.0); MAGNESIUM 2.2 mg/dL (1.80-2.40)
[2023-07-11 16:55] LABS: TOTAL PROTEIN, SERUM 5.6 g/dL (6.0-8.3)
[2023-07-11 18:41] LABS: APPEARANCE,URINE CLEAR (CLEAR); BILIRUBIN,URINE SMALL mg/dL (NEGATIVE); COLOR,URINE YELLOW (YELLOW); GLUCOSE, URINE (UA) NEGATIVE (NEGATIVE); KETONES,URINE NEGATIVE (NEGATIVE); LEUKOCYTE ESTERASE ,URINE NEGATIVE Leu/uL (NEGATIVE); NITRATE,URINE NEGATIVE (NEGATIVE); OCCULT BLOOD,URINE NEGATIVE (NEGATIVE); PROTEIN,URINE NEGATIVE (NEGATIVE); UROBILINOGEN,URINE 0.2 mg/dL (0.2-1.0)
[2023-07-11 18:42] LABS: ADD UA MICROSCOPIC YES
[2023-07-11 19:42] LABS: BACTERIA,URINE Rare /HPF (None Seen); HYALINE CASTS, URINE 0-1 /LPF (0-1 /LPF); RBC,URINE 0-1 /HPF (0-1); SQUAMOUS EPITHELIAL CELL,UR None Seen /HPF (0-2); WBC,URINE 0-1 /HPF (0-1)
[2023-07-11] MEDS: CEFTRIAXONE 2GM VIAL IVPB ONE (19:59)
[2023-07-11] MEDS: 0.9% NACL 250ML 250 ML IV ONE (20:15)
[2023-07-11 20:30] LABS: RAPID GROUP A STREP negative (NEGATIVE)
[2023-07-11 20:45] LABS: COVID19 (SARS ANTIGEN RAPID) PRESUMPTIVE NEGATIVE (NEGATIVE); INFLUENZA TYPE A Negative For Type A (NEGATIVE); INFLUENZA TYPE B Negative For Type B (NEGATIVE)
[2023-07-11] MEDS: POTASSIUM CHLORIDE 10MEQ/100ML 100 ML IV ONE (23:50)
[2023-07-11 23:59] LABS: ABG BASE EXCESS -0.6 mmol/L (-2.0-3.0); ABG HCO3 22.1 mmol/L (21.0-28.0); ABG OXYGEN SATURATION 84.7 % (95.0-99.0); ABG PCO2 31 mmHg (35-48); ABG PH 7.465 (7.35-7.450); PO2, ARTERIAL BG 45.5 mmHg (83.0-108.0); VENT MODE, BG NC (ROOM AIR)
[2023-07-12] VITALS (81 sets, daily range): BP systolic 68–129; BP diastolic 37–103; PULSE 72–96; RESP 17–26; O2SAT 91–98
[2023-07-12] MEDS: MIDODRINE HCL 5 MG TABLET PO SCH (00:07)
[2023-07-12 00:25] LABS: ABG BASE EXCESS -0.5 mmol/L (-2.0-3.0); ABG OXYGEN SATURATION 76.4 % (95.0-99.0); ABG PCO2 30 mmHg (35-48); ABG PH 7.477 (7.35-7.450); PO2, ARTERIAL BG < 45.0 mmHg (83.0-108.0); VENT MODE, BG ROOMAIR (ROOM AIR)
[2023-07-12] MEDS: ALBUMIN (HUMAN) 25% 100 ML IV ONE (01:02)
[2023-07-12] MEDS ORDERED: VANCOMYCIN PROTOCOL PER PHARMACY IV SCH (05:30)
[2023-07-12 05:44] LABS: ABG BASE EXCESS -1.2 mmol/L (-2.0-3.0); ABG HCO3 21.8 mmol/L (21.0-28.0); ABG OXYGEN SATURATION 93.3 % (95.0-99.0); ABG PCO2 31 mmHg (35-48); ABG PH 7.459 (7.35-7.450); CARBON MONOXIDE 1.2; HHb 6.6; PO2, ARTERIAL BG 69.7 mmHg (83.0-108.0)
[2023-07-12] MEDS ORDERED: DOCUSATE SODIUM 100 MG CAP PO PRN (06:00)
[2023-07-12] MEDS ORDERED: DEXTROSE 50%-WATER 50 ML DISP.SYRIN IV PRN (06:00)
[2023-07-12] MEDS ORDERED: GLUCAGON 1MG KIT 1 MG ML IM PRN (06:00)
[2023-07-12] MEDS ORDERED: MAGNESIUM 2GM PREMIX 50ML 50 ML IV PRN (06:00)
[2023-07-12] MEDS ORDERED: KCL 20 MEQ ERTAB PO PRN (06:00)
[2023-07-12] MEDS ORDERED: LACTULOSE 20 GM/30 ML UDCUP PO PRN (06:00)
[2023-07-12] MEDS ORDERED: POTASSIUM CHLORIDE 10MEQ/100ML 100 ML IV PRN (06:00)
[2023-07-12] MEDS ORDERED: ACETAMINOPHEN 650 MG SUPPOSITORY RC PRN (06:00)
[2023-07-12] MEDS: VANCOMYCIN 1G/250ML KIT 250 ML IV ONE (06:15)
[2023-07-12] MEDS: IPRATROPIUM/ALBUTEROL SULFATE 3 ML SOLUTION IH SCH (06:28)
[2023-07-12] MEDS: INSULIN HUMULIN R 100 UNIT/ML 3ML SQ SCH (07:30)
[2023-07-12] MEDS: ONDANSETRON 4MG INJ IVP PRN (08:53)
[2023-07-12] MEDS: PANTOPRAZOLE 40 MG TAB DR PO SCH (08:53)
[2023-07-12] MEDS: CLOPIDOGREL 75MG TAB PO SCH (08:53)
[2023-07-12] MEDS: BUMETANIDE 1 MG TAB PO SCH (08:53)
[2023-07-12] MEDS: APIXABAN 5 MG TABLET PO SCH (08:54)
[2023-07-12] MEDS: BUMETANIDE 1MG/4ML VIAL IVP SCH (11:44)
[2023-07-12] MEDS: KCL 20 MEQ ERTAB PO SCH (11:47)
[2023-07-12 12:11] LABS: HEMATOCRIT 35.6 % (42-54); MEAN CORPUSCULAR HEMOGLOBIN 28.8 pg (27.0-33.0); MEAN CORPUSCULAR HGB CONC 32.9 g/dL (32.0-36.0); MEAN CORPUSCULAR VOLUME 87.7 fL (79-99); NUCLEATED RED BLOOD CELLS 0.4 % (0.0-0.19); RED BLOOD CELL COUNT(AUTO) 4.06 MIL/uL (4.50-6.20); RED CELL DISTRIBUTION WIDTH 20.5 % (11.0-15.5); WHITE BLOOD COUNT (AUTO) 10.7 K/uL (4.8-10.8)
[2023-07-12 12:26] LABS: CREATININE 2.2 mg/dL (0.5-1.5); POTASSIUM 3.4 mmol/L (3.5-5.1)
[2023-07-12 12:30] LABS: ALBUMIN 2.6 g/dL (3.5-5.0); BILIRUBIN,TOTAL 4.5 mg/dL (0.2-1.0); MAGNESIUM 2.1 mg/dL (1.80-2.40); TOTAL PROTEIN, SERUM 5.7 g/dL (6.0-8.3)
[2023-07-12] MEDS: DOBUTAMINE 250MG/D5 250ML 250 ML IV SCH (13:42)
[2023-07-12] MEDS: BUMETANIDE 2.5MG/10ML (DRIP) 40 ML IV SCH (14:29)
[2023-07-12] MEDS: CEFTRIAXONE 2GM VIAL IVPB SCH (21:07)
[2023-07-12] MEDS: BALSAM PERU/CASTOR OIL 60 GM TUBE TP SCH (21:08)
[2023-07-13] VITALS (101 sets, daily range): BP systolic 78–115; BP diastolic 40–77; PULSE 89–123; RESP 16–29; O2SAT 88–97
[2023-07-13] MEDS: VANCOMYCIN 750MG VIAL ONE (02:32)
[2023-07-13 05:27] LABS: HEMATOCRIT 39.1 % (42-54); MEAN CORPUSCULAR HEMOGLOBIN 28.6 pg (27.0-33.0); MEAN CORPUSCULAR HGB CONC 31.7 g/dL (32.0-36.0); MEAN CORPUSCULAR VOLUME 90.1 fL (79-99); NUCLEATED RED BLOOD CELLS 0.7 % (0.0-0.19); RED BLOOD CELL COUNT(AUTO) 4.34 MIL/uL (4.50-6.20); RED CELL DISTRIBUTION WIDTH 20.6 % (11.0-15.5); WHITE BLOOD COUNT (AUTO) 9.9 K/uL (4.8-10.8)
[2023-07-13] MEDS: VANCOMYCIN 750MG VIAL IVPB SCH (05:38)
[2023-07-13 05:52] LABS: CREATININE 2.5 mg/dL (0.5-1.5); MAGNESIUM 2.2 mg/dL (1.80-2.40); POTASSIUM 3.8 mmol/L (3.5-5.1)
[2023-07-13 10:53] LABS: ABG BASE EXCESS -2.9 mmol/L (-2.0-3.0); ABG HCO3 21.5 mmol/L (21.0-28.0); ABG OXYGEN SATURATION 76.1 % (95.0-99.0); ABG PCO2 36 mmHg (35-48); ABG PH 7.389 (7.35-7.450); DEVICE COMMENT RBEDDIE; PO2, ARTERIAL BG < 45.0 mmHg (83.0-108.0); VENT MODE, BG NC (ROOM AIR)
[2023-07-13 11:52] LABS: ABG BASE EXCESS -4.7 mmol/L (-2.0-3.0); ABG HCO3 19.6 mmol/L (21.0-28.0); ABG OXYGEN SATURATION 77.5 % (95.0-99.0); ABG PCO2 34 mmHg (35-48); ABG PH 7.375 (7.35-7.450); PO2, ARTERIAL BG < 45.0 mmHg (83.0-108.0); VENT MODE, BG NC (ROOM AIR)
[2023-07-13] MEDS: METOLAZONE 2.5 MG TABLET PO SCH (13:00)
[2023-07-13] MEDS ORDERED: POTASSIUM CHLORIDE 10MEQ SR TAB PO PRN (15:00)
[2023-07-13] MEDS: ZYVOX 600 MG TAB PO SCH (15:30)
[2023-07-14] VITALS (100 sets, daily range): BP systolic 87–120; BP diastolic 44–93; PULSE 89–116; RESP 14–35; O2SAT 92–97
[2023-07-14 01:15] LABS: CHLORIDE,URINE RANDOM 23 mmol/L (110-250); CREATININE,URINE RANDOM 75 mg/dL (30-135); POTASSIUM,URINE RANDOM 43 mmol/L (25-125); SODIUM,URINE RANDOM < 13 mmol/l (40-220)
[2023-07-14 06:43] LABS: BASOPHILS # (AUTO) 0.01 K/uL (0.00-0.20); BASOPHILS % (AUTO) 0.1 % (0.0-5.0); EOSINOPHILS # (AUTO) 0.02 K/uL (0.00-0.70); EOSINOPHILS % (AUTO) 0.2 % (0.0-8.0); HEMATOCRIT 37.2 % (42-54); IMMATURE GRANULOCYTE ABSOLUTE 0.06 K/uL (0-1); LYMPHOCYTES # (AUTO) 0.8 K/uL (1.0-4.8); LYMPHOCYTES % (AUTO) 8.3 % (21.0-51.0); MEAN CORPUSCULAR HEMOGLOBIN 28.5 pg (27.0-33.0); MEAN CORPUSCULAR HGB CONC 32.3 g/dL (32.0-36.0); MEAN CORPUSCULAR VOLUME 88.4 fL (79-99); MONOCYTES # (AUTO) 0.6 K/uL (0.1-1.0); MONOCYTES % (AUTO) 5.7 % (3.0-13.0); NEUTROPHILS # (AUTO) 8.6 K/uL (1.8-7.7); NEUTROPHILS % (AUTO) 85.1 % (40.0-77.0); NUCLEATED RED BLOOD CELLS 0.4 % (0.0-0.19); PLATELET COUNT (AUTO) 113 K/uL (130-400); RED BLOOD CELL COUNT(AUTO) 4.21 MIL/uL (4.50-6.20); RED CELL DISTRIBUTION WIDTH 20.5 % (11.0-15.5); WHITE BLOOD COUNT (AUTO) 10.1 K/uL (4.8-10.8)
[2023-07-14 07:14] LABS: CREATININE 2.6 mg/dL (0.5-1.5); POTASSIUM 3.8 mmol/L (3.5-5.1); THYROID STIMULATING HORMONE 7.24 uIU/mL (0.36-3.74); URIC ACID 12.1 mg/dL (2.6-7.2); VANCOMYCIN TROUGH 15.5 UG/ML (10.0-20.0)
[2023-07-14] MEDS: Vitamin B Complex/Vit C/Folic Acid PO SCH (09:13)
[2023-07-14] MEDS: LEVOTHYROXINE 100 MCG TABLET PO ONE (10:35)
[2023-07-14] MEDS ORDERED: GLUCAGON 1MG KIT 1 MG ML IM PRN (12:30)
[2023-07-14] MEDS ORDERED: DEXTROSE 50%-WATER 50 ML DISP.SYRIN IV PRN (12:30)
[2023-07-14] MEDS: MILRINONE-D5W 20 MG/100 ML 100 ML IV SCH (14:41)
[2023-07-15] VITALS (53 sets, daily range): BP systolic 86–130; BP diastolic 47–114; PULSE 64–115; RESP 15–25; O2SAT 92–93
[2023-07-15] MEDS: ACETAMINOPHEN 325 MG TAB PO PRN (02:18)
[2023-07-15] MEDS: HYDROXYZINE 25 MG TABLET PO PRN (02:19)
[2023-07-15 04:29] LABS: BASOPHILS # (AUTO) 0.01 K/uL (0.00-0.20); BASOPHILS % (AUTO) 0.1 % (0.0-5.0); EOSINOPHILS # (AUTO) 0.08 K/uL (0.00-0.70); EOSINOPHILS % (AUTO) 0.7 % (0.0-8.0); HEMATOCRIT 37.6 % (42-54); IMMATURE GRANULOCYTE ABSOLUTE 0.09 K/uL (0-1); LYMPHOCYTES # (AUTO) 0.6 K/uL (1.0-4.8); MEAN CORPUSCULAR HEMOGLOBIN 28.4 pg (27.0-33.0); MEAN CORPUSCULAR VOLUME 86.2 fL (79-99); MONOCYTES # (AUTO) 0.7 K/uL (0.1-1.0); MONOCYTES % (AUTO) 6.1 % (3.0-13.0); NEUTROPHILS % (AUTO) 87.3 % (40.0-77.0); NUCLEATED RED BLOOD CELLS 0.4 % (0.0-0.19); PLATELET COUNT (AUTO) 104 K/uL (130-400); RED BLOOD CELL COUNT(AUTO) 4.36 MIL/uL (4.50-6.20); RED CELL DISTRIBUTION WIDTH 20.5 % (11.0-15.5); WHITE BLOOD COUNT (AUTO) 11.4 K/uL (4.8-10.8)
[2023-07-15 04:43] LABS: CREATININE 2.7 mg/dL (0.5-1.5); PHOSPHORUS 3.1 mg/dL (2.5-4.9)
[2023-07-15 05:17] LABS: POTASSIUM 2.8 mmol/L (3.5-5.1)
[2023-07-15] MEDS: IPRATROPIUM 0.5 MG/2.5 ML INH IH ONE (06:43)
[2023-07-15] MEDS: ALBUTEROL 0.083% 2.5 MG/3 ML INH IH ONE (06:43)
[2023-07-15] MEDS: POTASSIUM CHLORIDE 10% ELIXIR 20 MEQ/15 ML UDCUP PO PRN (08:17)
[2023-07-15] MEDS: LEVOTHYROXINE 100 MCG TABLET PO SCH (08:18)
[2023-07-15] MEDS: MIDODRINE HCL 5 MG TABLET PO SCH (08:18)
[2023-07-15] MEDS ORDERED: LORAZEPAM 1 MG TABLET PO PRN (10:00)
[2023-07-15] MEDS ORDERED: ARTIFICAL TEARS SOL 15 ML OU PRN (10:00)
[2023-07-15] MEDS ORDERED: ATROPINE SULFATE 5 ML DROPS PO PRN (10:00)
[2023-07-15] MEDS: MORPHINE 2 MG SYG IVP PRN (11:43)
[2023-07-15] MEDS: LORAZEPAM 2 MG/ML 1 ML VIAL IVP PRN (15:25)
[2023-07-15] MEDS: MORPHINE 4 MG SYG IVP ONE (20:29)
[2023-07-16 17:11] LABS: RESPIRATORY SYNCYTIAL VIRUS Negative (Negative)
== END 2023-07-15 20:27 | disposition hospice, home (50) | DRG 314 ==
LOC: EDH 15:05 → DIRECT 22:36 → OBSVTOIN 22:36 → 2BH 07-12 00:21 → EDHIP 07-12 01:24 → 2CV 07-12 01:45 → 3BH 07-15 13:30
PROVIDERS: ADMIT Internal Medicine; ATTEND Internal Medicine
PROC: 5A0945A Assistance with Respiratory Ventilation, 24-96 Consecutive Hours, High Flow/Velocity Cannula (ICD-10-PCS; principal; 2023-07-13)
DX: T80.211A Bloodstream infection due to central venous catheter, initial encounter (principal); A41.9 Sepsis, unspecified organism; I50.43 Acute on chronic combined systolic (congestive) and diastolic (congestive) heart failure; J96.01 Acute respiratory failure with hypoxia; R57.0 Cardiogenic shock; I13.0 Hypertensive heart and chronic kidney disease with heart failure and stage 1 through stage 4 chronic kidney disease, or unspecified chronic kidney disease; E87.20 Acidosis, unspecified; D68.59 Other primary thrombophilia; E44.0 Moderate protein-calorie malnutrition; I25.810 Atherosclerosis of coronary artery bypass graft(s) without angina pectoris; I48.19 Other persistent atrial fibrillation; N17.9 Acute kidney failure, unspecified; R17 Unspecified jaundice; Z20.822 Contact with and (suspected) exposure to COVID-19; Z68.20 Body mass index [BMI] 20.0-20.9, adult; E87.6 Hypokalemia; Z66 Do not resuscitate; N18.32 Chronic kidney disease, stage 3b; E11.22 Type 2 diabetes mellitus with diabetic chronic kidney disease; R62.7 Adult failure to thrive; D50.9 Iron deficiency anemia, unspecified; E03.9 Hypothyroidism, unspecified; E78.00 Pure hypercholesterolemia, unspecified; E88.A Wasting disease (syndrome) due to underlying condition; I25.5 Ischemic cardiomyopathy; I49.3 Ventricular premature depolarization; Y84.8 Other medical procedures as the cause of abnormal reaction of the patient, or of later complication, without mention of misadventure at the time of the procedure; I25.2 Old myocardial infarction; Z95.1 Presence of aortocoronary bypass graft; Y92.89 Other specified places as the place of occurrence of the external cause; Z79.01 Long term (current) use of anticoagulants; Z95.810 Presence of automatic (implantable) cardiac defibrillator; Z79.899 Other long term (current) drug therapy; Z95.5 Presence of coronary angioplasty implant and graft; Z86.74 Personal history of sudden cardiac arrest; Z51.5 Encounter for palliative care; R54 Age-related physical debility
CPT/HCPCS: 36415; 36600; 71045; 76770; 80048; 80053; 80202; 81001; 82435; 82436; 82550; 82570; 82803; 82947; 82948; 83605; 83735; 83880; 83935; 84100; 84132; 84133; 84295; 84300; 84439; 84443; 84481; 84484; 84550; 85018; 85025; 85027; 87040; 87420; 87426; 87804; 87880; 93005; 94640; 94664; G0378; J0696; J1250; J2060; J2260; J2270; J2405; J3370; J3480; J3490; P9046

== ENCOUNTER 2023-07-15 07:53 | Inpatient (IN) | payer OTHER ==
[~2023-07-15] VITALS: Ht 180.3 cm; Wt 68.9 kg
[2023-07-15 20:00] VITALS: O2SAT 91
[2023-07-15] MEDS: MORPHINE 2 MG SYG ONE (22:26)
[2023-07-15] MEDS ORDERED: GLYCOPYRROLATE 0.2 MG/ML 5 ML VIAL IVP SCH (23:00)
[2023-07-15] MEDS ORDERED: GLYCOPYRROLATE 0.2 MG/ML 5 ML VIAL IVP PRN (23:00)
[2023-07-15] MEDS ORDERED: ACETAMINOPHEN 650 MG SUPPOSITORY RC PRN (23:00)
[2023-07-15] MEDS ORDERED: ONDANSETRON 4MG INJ IVP PRN (23:00)
[2023-07-15] MEDS ORDERED: BISACODYL 10 MG SUPP.RECT RC PRN (23:00)
[2023-07-15] MEDS: MORPHINE 2 MG SYG IVP PRN (23:22)
[2023-07-16] MEDS: MORPHINE 2 MG SYG IVP PRN (02:32)
[2023-07-16 07:15] VITALS: PULSE 105; RESP 18
[2023-07-16 07:48] VITALS: BP 85/42; PULSE 117; RESP 18
[2023-07-16 08:00] VITALS: O2SAT 92
[2023-07-16] MEDS: LORAZEPAM 2 MG/ML 1 ML VIAL IVP PRN (10:34)
== END 2023-07-16 15:00 | DRG 951 ==
LOC: 3BH 07:53
PROVIDERS: ADMIT Internal Medicine; ATTEND Internal Medicine
DX: Z51.5 Encounter for palliative care (principal); A41.9 Sepsis, unspecified organism; I50.23 Acute on chronic systolic (congestive) heart failure; A41.89 Other specified sepsis; T80.211A Bloodstream infection due to central venous catheter, initial encounter; E78.5 Hyperlipidemia, unspecified; E87.6 Hypokalemia; I25.10 Atherosclerotic heart disease of native coronary artery without angina pectoris; I25.5 Ischemic cardiomyopathy; I48.91 Unspecified atrial fibrillation; N18.9 Chronic kidney disease, unspecified; R62.7 Adult failure to thrive; Y83.8 Other surgical procedures as the cause of abnormal reaction of the patient, or of later complication, without mention of misadventure at the time of the procedure; Y92.89 Other specified places as the place of occurrence of the external cause; Z66 Do not resuscitate; Z79.01 Long term (current) use of anticoagulants; Z79.02 Long term (current) use of antithrombotics/antiplatelets; Z79.899 Other long term (current) drug therapy; Z82.0 Family history of epilepsy and other diseases of the nervous system; Z82.3 Family history of stroke; Z82.49 Family history of ischemic heart disease and other diseases of the circulatory system; Z83.3 Family history of diabetes mellitus; Z95.1 Presence of aortocoronary bypass graft; Z95.5 Presence of coronary angioplasty implant and graft; Z95.810 Presence of automatic (implantable) cardiac defibrillator
CPT/HCPCS: G0378; J2060; J2270